=== PATIENT | female | born 1980 | race Caucasian/White ===

== ENCOUNTER 2020-09-09 11:25 | Emergency (ER) | payer OTHER, SELFPAY ==
[2020-09-09 12:00] VITALS: BP 120/74; PULSE 69; RESP 18; TEMP 36.9; O2SAT 98; BMI 23.6
--- NOTE | 2020-09-09 12:15 | HMH.EDUTC ---
[facility] [place] Disposition Clinical Impression: Encounter for laboratory testing for COVID-19 virus Disposition: Home, Self-Care Condition on Discharge: Good Instructions: DI for COVID-19 (Suspected or Confirmed ), COVID-19: Testing and Tracing, Preventing the Spread of Coronavirus Discharge Instructions Additional Instructions: *Monitor Temp, Over the counter Motrin or Tylenol as directed/as needed Tylenol every 4 hours and Motrin every 6 hours (as long as your family doctor has told you that you can take it) for fever or pain. and straight to ER if unable to lower temp less than 101.0 after medication given *Warm salt water gargles may help to soothe the throat *Throat Lozenges *Warm fluids like tea with honey may help to soothe the throat *Sleep elevated *Humidifier/Vaporizer Follow up IMMEDIATELY for new or worsening symptoms or no Noticeable improvement over the next 48-72 hours. 911 for difficulty breathing or swallowing You were tested for today for COVID19 your test result should be back in the next 24-48 hours, you may call to the [facility] to see if your test results are back in the next 48 hours [phone] [facility] hours are 9am-9pm You was given a handout with instructions for Self Quarantine and Self isolation for while you wait on test results and what to do if they are positive If you are positive the Health Dept will be contacting you also Referrals: PCP,No [Primary Care Provider] - As needed Forms: Work/School Release Time of Disposition: 12:30 Medical Decision Making - Jass Inquiry Pt receiving controlled substance: No Jass was queried for this patient: No Vital Signs: 09/09/20 12:00 Temperature 98.4 F Temperature Source Oral Pulse Rate [Right Brachial] 69 Respiratory Rate 18 Blood Pressure [Right Arm] 120/74 Blood Pressure Mean [Right Arm] 89 Blood Pressure Source [Right Arm] Automatic Cuff Blood Pressure Position [Right Arm] Sitting 02 Sat by Pulse Oximetry 98 Oxygen Delivery Method Room Air Orders (Tests/Meds): ORDERS Category Date Time Status Covid-19 Nasal PCR ([facility]) Routine Lab 09/09/20 12:07 Ordered [facility] HPI - General Stated complaint: covid exposure Time Seen by Provider: 09/09/20 12:16 Mode of Arrival: Ambulatory Source of Information: Patient Limitations: No Limitations Description of Symptoms (Recalled from Triage Doc. by RN): PATIENT REQUESTING COVID TEST D/T EXPOSURE. C/O HEADACHE, SORE THROAT, LOSS OF TASTE, FEVER, DIARRHEA, DIZZINESS AND SINUS PRESSURE HEENT Symptoms (Recalled from RN notes): No Resp Symptoms (Recalled from RN notes): No Skin Symptoms (Recalled from RN notes): No MS Symptoms (Recalled from RN notes): No Functional Status (Recalled from RN notes): WNL - History of Present Illness Provider Complaint: Patient states that she was recenty around her boss that tested positive for COVID States that she has had some diarrhea that is better today, body aches and chills State that today she hasnt been able to taste or smell anything State that also she has had runny nose and wanted to get tested for COVID - Related Data Allergies Allergy/AdvReac Type Severity Reaction Status Date / Time Iodide Allergy Unknown Uncoded 08/23/17 15:03 - Worker's Comp Is this a Worker's Comp case?: No H History - Hepatitis A Screen Drug use history?: No High risk sexual behaviors?: No History of sexually transmitted infection?: No Currently employed?: No Childcare worker?: No Do you have indoor plumbing?: Yes Do you have electricity?: Yes Attestation statement:: This patient has been screened for Hepatitis A risk factors. I have reviewed the patient's past medical history: Yes Laterality Cases: Bilateral: Tonsillectomy - Social History Alcohol Intake: never Occupational Status: other ROS Obtained: Yes All systems reviewed & no additional complaints, Yes Systems reviewed as appropriate & no additional complaints - Constitutional Constitutional: Reports syste
[2020-09-09 12:37] VITALS: BP 120/74; PULSE 69; RESP 18; TEMP 36.9; O2SAT 98
== END 2020-09-09 12:38 | disposition home or self-care (01) ==
PROVIDERS: Emergency Provider Nurse Practitioner
DX: Z20.822 Contact with and (suspected) exposure to COVID-19 (principal)
CPT/HCPCS: 99202; G0463; U0003

== ENCOUNTER → 2022-11-19 14:30 | Outpatient (CLI) | payer OTHER, SELFPAY ==
[2022-11-19 14:15] LABS: Alanine Aminotransferase 44 U/L (12-78); Albumin/Globulin Ratio 1.5 (1.1-1.8); Alkaline Phosphatase 103 U/L (38-126); Anion Gap 9.3 mEq/L (5-15); Aspartate Amino Transferase 25 U/L (14-36); Basophils # 0.1 K/mm3 (0-0.2); Basophils % 0.7 % (0.1-2.0); Bilirubin,Total 0.4 mg/dl (0.2-1.3); Blood Urea Nitrogen 14 mg/dl (7-17); Calcium 8.8 mg/dl (8.4-10.2); Carbon Dioxide 28 mmol/L (22.0-30.0); Chloride 108 mmol/L (98-107); Chol/HDL Ratio 4.1 (1-3.5); Cholesterol 131 mg/dl (140-200); Eosinophils # 0.9 K/mm3 (0.0-0.4); Eosinophils % 4.4 % (0.1-12.0); Estimated Glomerular Filt Rate 91 ml/min (>60); GFR (African American) 111 ML/MIN (>60); Globulin 2.7 g/dL (1.3-3.2); Glucose 113 mg/dl (74-100); HDL Cholesterol 32 mg/dl (40-60); Hematocrit 43.5 % (37.0-47.0); Hemoglobin 13.9 g/dL (12.2-16.2); Lymphocytes # 3.8 K/mm3 (0.7-4.5); Mean Corpuscular Hemoglobin 29.5 pg (27.0-31.2); Mean Corpuscular Volume 92.3 fl (81-99); Mean Platelet Volume 8.6 fl (7.4-10.4); Monocytes # 0.8 K/mm3 (0.1-1.0); Monocytes % 3.8 % (1.7-9.3); Neutrophils # 14.5 K/mm3 (1.8-7.8); Neutrophils % 72.2 % (37.0-80.0); Platelet Count 476 K/mm3 (142-424); Potassium 4.3 mmoL/L (3.5-5.1); Red Blood Count 4.72 M/mm3 (4.20-5.40); Sodium 141 mmol/L (136-145); Total Protein,Serum 6.7 g/dl (6.3-8.2); Triglycerides 153 mg/dl (30-150); VLDL Cholesterol 31 mg/dL (0-40)
[2022-11-19 14:18] LABS: MANUAL DIFFERENTIAL MANUAL DIFFERENTIAL (MANUAL DIFF)
[2022-11-19 14:25] LABS: Direct LDL Cholesterol 78.02 mg/dL (100-129)
[2022-11-19 14:31] LABS: 25-OH Vitamin D, Total 15.6 ng/mL (30-100)
[2022-11-19 14:45] LABS: Thyroid Stimulating Hormone 0.57 uIU/mL (0.465-4.68)
[2022-11-19 16:17] LABS: Eosinophils % 4 % (0-3); Lymphocytes % 27 % (10-50); Monocytes % 4 % (2-9); Neutrophils % 65 % (42-76); Platelet Estimate Slight Increase; RBC Morphology Normal; Total Cells Counted 100
== END ==
LOC: LAB.DROPOF 14:31
PROVIDERS: PCP Nurse Practitioner Family; Visit Provider Nurse Practitioner Family
DX: R53.83 Other fatigue (principal); E55.9 Vitamin D deficiency, unspecified; M79.671 Pain in right foot; M54.50 Low back pain, unspecified; E78.2 Mixed hyperlipidemia
CPT/HCPCS: 80053; 80061; 82306; 84443; 85007; 85025

== ENCOUNTER → 2023-02-03 13:57 | Outpatient (CLI) | payer OTHER, SELFPAY ==
--- NOTE | 2023-02-03 14:04 | XR_ITS ---
FINAL REPORT CLINICAL HISTORY: foot pain COMPARISON: None FINDINGS: LEFT FOOT Three views of the left foot demonstrate no acute fracture or dislocation. The visualized joint spaces are normally aligned. The soft tissues are unremarkable. IMPRESSION: No acute bony abnormality. Reviewed, Interpreted and Dictated by Reid Melgar MD Transcribed by Sade Garcia Authenticated and [facility]
--- NOTE | 2023-02-03 14:04 | XR_ITS ---
FINAL REPORT CLINICAL HISTORY: foot pain COMPARISON: None FINDINGS: RIGHT FOOT 3 views of the right foot were obtained. There is no acute fracture or dislocation. Visualized joint spaces are normally aligned. Soft tissues are unremarkable. A small plantar calcaneal spur is present. IMPRESSION: No acute bony abnormality. Reviewed, Interpreted and Dictated by Reid Melgar MD Transcribed by Sade Garcia Authenticated and [facility]
== END ==
PROVIDERS: PCP Nurse Practitioner Family; Visit Provider Podiatrist
DX: M79.672 Pain in left foot (principal); M79.671 Pain in right foot
CPT/HCPCS: 73630

== ENCOUNTER → 2023-03-03 14:51 | Outpatient (CLI) | payer OTHER, SELFPAY | PROVIDERS: PCP Nurse Practitioner Family; Visit Provider Nurse Practitioner Family | DX: R82.90 Unspecified abnormal findings in urine (principal) | CPT/HCPCS: 87086 ==

== ENCOUNTER → 2023-06-16 10:04 | Outpatient (CLI) | payer MEDICAID, OTHER, SELFPAY ==
[2023-06-16 11:23] LABS: Alanine Aminotransferase 82 U/L (12-78); Albumin Level 4.1 g/dl (3.5-5.0); Alkaline Phosphatase 61 U/L (38-126); Anion Gap 10.4 mEq/L (5-15); Aspartate Amino Transferase 64 U/L (14-36); Bilirubin,Direct 0.2 mg/dl (0.0-0.4); Bilirubin,Indirect 0.3 mg/dL (0.0-0.9); Bilirubin,Total 0.5 mg/dl (0.2-1.3); Bilirubin,Unconjugated 0.3 mg/dL (0.0-1.1); Blood Urea Nitrogen 15 mg/dl (7-17); Calcium 9.2 mg/dl (8.4-10.2); Carbon Dioxide 31 mmol/L (22.0-30.0); Chloride 104 mmol/L (98-107); Chol/HDL Ratio 4.5 (1-3.5); Cholesterol 176 mg/dl (140-200); Estimated Glomerular Filt Rate 91 ml/min (>60); GFR (African American) 111 ML/MIN (>60); Glucose 102 mg/dl (74-100); HDL Cholesterol 39 mg/dl (40-60); Potassium 4.4 mmoL/L (3.5-5.1); Sodium 141 mmol/L (136-145); Total Protein,Serum 6.8 g/dl (6.3-8.2); Triglycerides 143 mg/dl (30-150); VLDL Cholesterol 29 mg/dL (0-40)
[2023-06-16 11:33] LABS: Direct LDL Cholesterol 111.14 mg/dL (100-129); NT Pro Brain Natriuretic Pep. 29.1 pg/mL (0-125)
[2023-06-16 11:38] LABS: Free T4 (Free Thyroxine) 1.16 ng/dl (0.78-2.19)
[2023-06-16 15:53] LABS: Basophils # 0.1 K/mm3 (0-0.2); Basophils % 0.7 % (0.1-2.0); Eosinophils # 0.4 K/mm3 (0.0-0.4); Eosinophils % 3.6 % (0.1-12.0); Hematocrit 43.8 % (37.0-47.0); Hemoglobin 14.9 g/dL (12.2-16.2); Lymphocytes # 2.8 K/mm3 (0.7-4.5); Lymphocytes % 26.9 % (10-50); Mean Corpuscular HGB Conc 33.9 g/dL (31.8-35.4); Mean Corpuscular Hemoglobin 31.9 pg (27.0-31.2); Mean Corpuscular Volume 93.9 fl (81-99); Mean Platelet Volume 8.9 fl (7.4-10.4); Monocytes # 0.5 K/mm3 (0.1-1.0); Monocytes % 4.4 % (1.7-9.3); Neutrophils # 6.7 K/mm3 (1.8-7.8); Neutrophils % 64.5 % (37.0-80.0); Platelet Count 289 K/mm3 (142-424); Red Blood Count 4.66 M/mm3 (4.20-5.40); Red Cell Distribution Width 13.7 % (11.5-17.5); White Blood Count 10.3 K/mm3 (4.8-10.8)
== END ==
LOC: LAB 10:05
PROVIDERS: PCP Emergency Medicine; Visit Provider Physician Assistant
DX: R06.02 Shortness of breath (principal); R60.9 Edema, unspecified; R07.9 Chest pain, unspecified; R94.31 Abnormal electrocardiogram [ECG] [EKG]; Z72.0 Tobacco use
CPT/HCPCS: 36415; 80048; 80061; 80076; 83735; 83880; 84439; 84443; 85025

== ENCOUNTER → 2023-07-14 09:59 | Outpatient (CLI) | payer MEDICAID, SELFPAY ==
--- NOTE | 2023-07-14 10:02 | CA_ITS ---
APPROVED REPORT EXAM: Comprehensive 2D, Doppler, and color-flow Echocardiogram Fish Culturist: Pascale Villalba RT(R) Ht: 5 ft 5 in Wt: 161lbs BSA: 1.80 BP: 115/82 mmHg Indications: SOB, CHF, CP, edema, smoker, fatigue 2D Dimensions LVOT 1.90 cm (M/F) 1.5-2.5 LVEF (Lorenzo's) 61.60 % F: 54 - 74 LV Volume 93.40 mL F: 46 - 106 LV Volume Index 51.60 mL/m2 F: 29 - 61 LA Volume 22.80 mL LA Volume Index 12.60 mL/m2 (M/F) 16-34 M-Mode Dimensions RVDd 2.54 cm (0.9-2.6) LA Diam 3.23 cm (1.9-4.0) LVDd 4.79 cm (3.5-5.7) Ao Diam 2.62 cm (2.0-3.7) LVDs 3.36 cm (3.5-5.7) IVSd 0.75 cm (0.6-1.1) PWd 0.82 cm (0.6-1.1) EF (Teich) 56.90% FS 29.90% EDV (Teich) 107.00 mL ESV (Teich) 46.10 mL LV Diastology E Decel Time 220.00 (160-240 msec) E/A Ratio 1.3 MED E' 8.80 (< 7 cm/sec) E'/MED E' Ratio 10.74 (>14) LAT E' 12.80 (<10 cm/sec) E/LAT E' Ratio 7.38 (>14) Mitral Valve MV E Max Rome. 95.00 (40-130 cm/s) MV A Velocity 75.00 (40-130 cm/s) E/A Ratio 1.26 MV Decel. Time 220.00 (160-240 ms) MV PHT 64.00 ms Tricuspid Valve TR P. Velocity 258.00 cm/s RAP Estimate 10.00 mmHg RVSP 36.50 mmHg Left Ventricle The left ventricle is normal size. The left ventricular systolic function is normal. The left ventricular ejection fraction is within the normal range. There is normal left ventricular wall thickness. There is normal LV segmental wall motion. The left ventricular diastolic function is normal. LVEF is 60%. Right Ventricle The right ventricle is mildly dilated. The right ventricular systolic function is normal. Atria The left atrium size is normal. The right atrium size is normal. There is no Doppler evidence of interatrial shunt. Aortic Valve The aortic valve opens well. There is no aortic valvular stenosis. No aortic regurgitation is present. Mitral Valve The mitral valve is normal in structure. No evidence of mitral valve stenosis. There is no mitral valve regurgitation noted. Tricuspid Valve Valve leaflets are thin and pliable. Trace tricuspid regurgitation. There is insufficient TR jet to estimate RVSP. Pulmonic Valve The pulmonary valve is normal in structure. Trace pulmonic regurgitation. Great Vessels The aortic root is normal in size. The ascending aorta is normal in size. IVC is normal in size and collapses >50% with inspiration. Pericardium There is no pericardial effusion. Conclusion Normal biventricular systolic function. Mild RV dilation. No significant valvular stenosis or regurgitation. Electronically signed by : Verito Coyne MD 07/19/2023 13:13:08
== END ==
LOC: RT 10:01
PROVIDERS: PCP Emergency Medicine; Visit Provider Nurse Practitioner Family
DX: R06.02 Shortness of breath (principal); R07.9 Chest pain, unspecified; R94.31 Abnormal electrocardiogram [ECG] [EKG]; R60.1 Generalized edema
CPT/HCPCS: 93306

== ENCOUNTER → 2023-07-25 06:30 | Outpatient (CLI) | payer MEDICAID, SELFPAY ==
--- NOTE | 2023-07-25 06:35 | NM_ITS ---
APPROVED REPORT Exam: Nuclear Stress Test Indication: dysrhtmia, tob use, fm hx, c.p., sob, palpitations, fatigue, abn ekg Patient Location: Outpatient Stress Tech: An Rosen [place] Tech:Rachael Dupont, ARRT RT (R)(N)(M) Ht: 5 ft 5 in Wt: 163 lbs Bra Size: c HR: 58 bpm BP: 107/75 mmHg BSA: 1.81 m2 Rhythm: NSR TID: 1.14 BMI: 27.1 History: dysrhtmia, tob use, fm hx, c.p., sob, palpitations, fatigue, abn ekg Procedure: Patient exercised on Milton protocol 10:01 minutes and sec, resting heart rate 58 bpm, resting blood pressure 107/75 mmHg, with exercise maximum heart rate achived was 160 bpm which is 91 % of the maximum predicted heart rate and blood pressure was 176/82 mmHg. Test was stopped due to fatige, sob. Patient has Average exercise capacity, achieved 12.8 METs of workload on treadmill, the blood pressure response to exercise was Normal. Cardiac Stress and Resting SPECT Images: Cardiac Stress and Resting SPECT images were obtained using technetium 99m Myoview 31.2 mCi stress and 10.00 mCi at rest. Raw images demonstrate significant soft tissue overlap with the anterior borders of the LV wall. Resting and stress imaging in supine position demonstrate a medium sized, mild, tapered fixed perfusion defect that is no longer visualized with prone stress imaging. Findings are suggestive soft tissue attenuation. Gated imaging demonstrates normal global and regional LV systolic function. LVEF is calculated at 58%. Conclusion: Soft tissue attenuation is present. No definite evidence of fixed or reversible perfusion defects. Gated imaging demonstrates normal global and regional LV systolic function. LVEF is calculated at 58%. Electronically signed by : Verito Coyne MD 07/27/2023 12:33:12
--- NOTE | 2023-07-25 09:12 | CA_ITS ---
APPROVED REPORT Exam: Exercise Treadmill Technologist: An Rosen Ht: 5 ft 5 in Wt: 164 lbs BSA: 1.82 m2 HR: 58 bpm BP: 107/75 mmHg Rhythm: NSR Indications: Chest pain Medical History Medications: Lidocaine,,,,, Gabapentin,,,,, Vitamin D3,,,,, Diclofenac,,,,, Ibuprofen,,,,, CHANTIX,,,,, BuPRenorphinE-Naloxone,,,,, Furosemide,,,,, Stress Test Details Test: Milton HR Resting HR: 71 bpm Max Heart Rate (APMHR): 176 bpm Max HR Achieved: 160 bpm Target HR (85% APMHR): 150 bpm % of APMHR: 91 Recovery HR: 90 bpm HR response to stress: Normal HR response to stress BP Resting BP: 107.0/75.0 mmHg Max BP: 176.0/82.0 mmHg Recovery BP: 126.0/80.0 mmHg BP response to stress: Normal blood pressure response to stress. ECG Resting ECG: Sinus bradycardia Stress EC.[address] depression Arrhythmia: PVCs Recovery ECG: Return to baseline within 3 minutes of recovery Recovery Arrhythmia: PVCs Clinical Exercise duration: 10:01 min Highest Stage Achieved: Exercise capacity: 12.8 METs Overall Exercise Capacity for Age: Average Stress ECG Conclusion The patient was able to exercise for total of 10 minutes, 01 seconds. She achieved a total of 12.8 METS. She has average exercise capacity compared to age and sex matched peers. She has normal HR and BP response to exercise. Symptoms: Dyspnea, Chest pressure Arrhythmias/Ectopy: PVC ST-T Changes: 0.[address] depression Conclusion: Average exercise capacity. Normal ECG response to exercise. Myoview images reported separately. Test Summary REST . . . . . . . Sitting REST . . . . . . . Standing REST 17:22 0.0 1.2 71 . 107/ 75 . . Stage 1 01:00 10.0 1.7 96 . . . . Stage 1 02:00 10.0 1.7 104 . . . . Stage 1 03:00 10.0 1.7 107 . 140/ 68 . . Stage 2 01:00 12.0 2.5 116 . . . . Stage 2 02:00 12.0 2.5 120 . . . . Stage 2 03:00 12.0 2.5 114 . 158/ 70 . . Stage 3 01:00 14.0 3.4 132 . . . . Stage 3 02:00 14.0 3.4 138 . . . . Stage 3 03:00 14.0 3.4 147 . . . . Stage 4 . . . . . . . Myoview Injected Stage 4 01:00 16.0 4.2 157 . . . . Stage 4 01:01 16.0 4.2 157 . . . Stop exercise at 10:01 RECOVERY 01:00 0.0 0.0 125 . 176/ 82 . . RECOVERY 02:00 0.0 0.0 104 . 176/ 82 . . RECOVERY 03:00 0.0 0.0 95 . 148/ 77 . . RECOVERY 04:00 0.0 0.0 94 . 148/ 77 . . RECOVERY 05:00 0.0 0.0 90 . 137/ 86 . . RECOVERY 06:00 0.0 0.0 86 . 137/ 86 . . RECOVERY 06:18 0.0 0.0 90 . 126/ 80 . . Electronically signed by : Verito Coyne MD 07/27/2023 12:30:55
== END ==
LOC: RAD 06:31
PROVIDERS: PCP Emergency Medicine; Visit Provider Physician Assistant
DX: G47.9 Sleep disorder, unspecified (principal); R06.02 Shortness of breath; R06.81 Apnea, not elsewhere classified; R06.83 Snoring; R07.9 Chest pain, unspecified; R60.9 Edema, unspecified; R94.31 Abnormal electrocardiogram [ECG] [EKG]; Z72.0 Tobacco use
CPT/HCPCS: 78452; 93017; 93018; A9502

== ENCOUNTER 2023-09-08 09:46 | Outpatient (CLI) | payer MEDICAID, SELFPAY ==
[2023-09-09 03:45] LABS: Amphetamine/Metha Screen,Urine Negative ng/ml (<1000); Barbiturates Screen,Urine Negative ng/ml (<200); Benzodiazepines Screen,Urine Negative ng/ml (<200); Cannabinoid Screen,Urine Negative ng/ml (<50); Cocaine Screen,Urine Negative ng/ml (<300); Methadone Screen,Urine Negative ng/ml (<300); Opiate Screen,Urine Negative ng/ml (<300); Phencyclidine Screen,Urine Negative ng/ml (<25)
== END 2023-09-09 23:59 | disposition home or self-care (01) ==
PROVIDERS: PCP Family Medicine; Visit Provider Family Medicine
DX: G62.9 Polyneuropathy, unspecified (principal); Z79.899 Other long term (current) drug therapy
CPT/HCPCS: 80307

== ENCOUNTER 2023-10-21 08:58 | Outpatient (CLI) | payer MEDICAID, SELFPAY ==
--- NOTE | 2023-10-21 08:58 | MR_ITS ---
FINAL REPORT CLINICAL HISTORY: back pain COMPARISON: None FINDINGS: Multiplanar MR imaging of the lumbar spine was performed without and with contrast. There is motion on many sequences which somewhat limits overall image quality. On the sagittal T2-weighted images, disc degeneration is seen at several levels. There are several small Schmorl's nodes as well. Multiple vertebral body hemangiomas are present. The vertebral alignment is normal. There is no evidence of fracture. The conus is seen at approximately the L1 level and has an unremarkable appearance. L1-2: An annular bulge is present. There is a small left paracentral disc protrusion which mildly indents the thecal sac. No significant canal stenosis or neuroforaminal narrowing is seen. L2-3: An annular bulge is present. No significant canal stenosis or neuroforaminal narrowing is seen. L3-4: An annular bulge is present. No significant canal stenosis or neuroforaminal narrowing is seen. L4-5: An annular bulge is present. There is mild right neural foraminal narrowing. L5-S1: No significant canal stenosis or neuroforaminal narrowing is seen. No abnormal contrast enhancement is identified. IMPRESSION: Multilevel mild degenerative disc disease and spondylosis as described. Reviewed, Interpreted and Dictated by Omkar Daley III, MD Transcribed by Sade Garcia Authenticated and [facility]
[2023-10-21] MEDS: SODIUM CHLORIDE 0.9% 10ML SYR (RAD ONLY) 10 ML IV (10:45)
[2023-10-21] MEDS: GADOTERIDOL INJ 17ML SYRINGE 15 ML IV (10:45)
== END 2023-10-21 23:59 ==
LOC: RAD 08:58
PROVIDERS: Visit Provider Internal Medicine
DX: M54.50 Low back pain, unspecified (principal)
CPT/HCPCS: 72158; 76376; A9576

== ENCOUNTER 2023-11-03 09:28 | Outpatient (CLI) | payer MEDICAID, SELFPAY ==
--- NOTE | 2023-11-03 09:33 | XR_ITS ---
FINAL REPORT CLINICAL HISTORY: right knee pain FINDINGS: AP, lateral and oblique views of the right knee were obtained. There is no prior exam for comparison. There is no acute osseous abnormality of the right knee. The joint space is preserved. The soft tissues are normal. There is no joint effusion. IMPRESSION: No acute osseous abnormality of the right knee. Reviewed, Interpreted and Dictated by Christine Acuna MD Transcribed by Judy Crow Authenticated and [facility]
--- NOTE | 2023-11-03 09:33 | XR_ITS ---
FINAL REPORT CLINICAL HISTORY: fall on a chair COMPARISON: None FINDINGS: Four views of the left ribs were obtained. There is no displaced, acute fracture identified. The visualized lungs are clear. No pneumothorax is identified. IMPRESSION: No displaced rib fracture or pneumothorax identified. Reviewed, Interpreted and Dictated by Crhistine Acuna MD Transcribed by Judy Crow Authenticated and [facility]
== END 2023-11-03 23:59 ==
LOC: RAD 09:30
PROVIDERS: PCP Internal Medicine; Visit Provider Internal Medicine
DX: R29.898 Other symptoms and signs involving the musculoskeletal system (principal); W19.XXXA Unspecified fall, initial encounter
CPT/HCPCS: 71100; 73562

== ENCOUNTER 2024-01-19 09:36 | Outpatient (CLI) | payer MEDICAID, SELFPAY ==
--- NOTE | 2024-01-19 09:43 | XR_ITS ---
FINAL REPORT CLINICAL HISTORY: fall FINDINGS: RIBS BILATERAL W/CHEST MIN 4 VIEWS The heart size is normal. The mediastinum is normal. The lungs are clear. There is no pneumothorax. Three views were obtained. There is no acute fracture or dislocation. IMPRESSION: No acute process. Reviewed, Interpreted and Dictated by Omkar Daley III, MD Transcribed by Araceli To Authenticated and . [facility]
--- NOTE | 2024-01-19 09:43 | XR_ITS ---
FINAL REPORT CLINICAL HISTORY: Right Ring finger pain FINDINGS: Right hand Three views were obtained. There is no acute fracture or dislocation. Mild degenerative changes are present. No soft tissue abnormality is identified. IMPRESSION: No acute process. Reviewed, Interpreted and Dictated by Omkar Daley III, MD Transcribed by Araceli To Authenticated and [facility]
--- NOTE | 2024-01-19 09:49 | XR_ITS ---
FINAL REPORT CLINICAL HISTORY: Left Hand; seen at [facility], states fx of ulna COMPARISON: 01/16/2022 FINDINGS: Left hand Three views were obtained. Ulnar styloid process fracture is again identified. There are mild degenerative changes of the wrist. Splint obscures some of the detail. IMPRESSION: Fracture as above. Reviewed, Interpreted and Dictated by Omkar Daley III, MD Transcribed by Araceli To Authenticated and [facility]
== END 2024-01-19 23:59 | disposition home or self-care (01) ==
PROVIDERS: PCP Internal Medicine; Visit Provider Internal Medicine
DX: M79.641 Pain in right hand (principal); M79.642 Pain in left hand; S62.92XA Unspecified fracture of left hand, initial encounter for closed fracture
CPT/HCPCS: 71100; 71111; 73130

== ENCOUNTER 2024-02-24 10:41 | Outpatient (CLI) | payer MEDICAID, SELFPAY ==
--- NOTE | 2024-02-24 10:50 | XR_ITS ---
FINAL REPORT CLINICAL HISTORY: Left Wrist fx COMPARISON: 01/17/2024 FINDINGS: Three views of the left wrist were obtained. Ulnar styloid process fracture is again identified. There is increasing distraction at the fracture site measuring 3 mm, previously measured 1 mm. No new bony abnormality is identified. IMPRESSION: Further displacement of the ulnar styloid process fracture. Reviewed, Interpreted and Dictated by Marquis Mccullough MD Transcribed by Araceli To Authenticated and [facility]
== END 2024-02-24 23:59 | disposition home or self-care (01) ==
LOC: RAD 10:42
PROVIDERS: PCP Internal Medicine; Visit Provider Orthopaedic Surgery
DX: M25.532 Pain in left wrist (principal); S52.612A Displaced fracture of left ulna styloid process, initial encounter for closed fracture
CPT/HCPCS: 73110

== ENCOUNTER 2024-04-02 16:26 | Outpatient (CLI) | payer MEDICAID, SELFPAY ==
[2024-04-02 19:43] LABS: Hemoglobin A1C 5.7 % (4.0-6.0)
[2024-04-10 22:08] LABS: 1,25 Dihydroxy Vitamin D 60 pg/mL (.); 1,25-Dihydroxy, Vitamin D-2 <10 pg/mL (.); 1,25-Dihydroxy, Vitamin D-3 57 pg/mL (.)
== END 2024-04-02 23:59 | disposition home or self-care (01) ==
LOC: LAB.DROPOF 04-03 16:26
PROVIDERS: PCP Internal Medicine; Visit Provider Internal Medicine
DX: E55.9 Vitamin D deficiency, unspecified (principal); E66.3 Overweight; Z68.28 Body mass index [BMI] 28.0-28.9, adult
CPT/HCPCS: 82652; 83036

== ENCOUNTER 2024-04-20 14:31 | Outpatient (CLI) | payer MEDICAID, SELFPAY ==
--- NOTE | 2024-04-20 14:35 | MR_ITS ---
FINAL REPORT CLINICAL HISTORY: right sided low back pain. right leg pain, numbness and tingling. COMPARISON: 10/21/2023 FINDINGS: Multiplanar MR imaging of the lumbar spine was performed without and with contrast. On the sagittal T2-weighted images, disc degeneration is seen at several levels. The vertebral alignment is normal. There is no evidence of fracture. The conus is seen at approximately the L1 level and has an unremarkable appearance. Several vertebral body hemangiomas are present. There is a 9 mm decreased signal focus in the posterior L2 vertebral body, not significantly changed from the prior exam. L1-2: There is a small left paracentral disc protrusion, stable since the prior exam. L2-3: An annular bulge is present with facet arthropathy. No significant canal stenosis or neuroforaminal narrowing is seen. L3-4: An annular bulge is present. There is a small right foraminal disc protrusion, with mild right neural foraminal narrowing. L4-5: An annular bulge is present. There is facet arthropathy and mild bilateral neural foraminal narrowing. L5-S1: An annular bulge is present. Facet arthropathy is present. No significant canal stenosis or neuroforaminal narrowing is seen. No abnormal contrast enhancement is identified. IMPRESSION: Multilevel mild degenerative disc disease and spondylosis with areas of neural foraminal narrowing as described. 9 mm decreased signal focus in the posterior L2 vertebral body, not significantly changed since October. Would consider follow-up MRI in 12 months or bone scan as clinically indicated. Reviewed, Interpreted and Dictated by Omkar Daley III, MD Transcribed by Sade Garcia Authenticated and [facility]
[2024-04-20] MEDS: GADOTERIDOL INJ 20ML SYRINGE 16 ML IV (16:02)
[2024-04-20] MEDS: SODIUM CHLORIDE 0.9% 10ML SYR (RAD ONLY) 10 ML IV (16:02)
== END 2024-04-20 23:59 | disposition home or self-care (01) ==
LOC: RAD 14:31
PROVIDERS: PCP Internal Medicine; Visit Provider Internal Medicine
DX: M54.16 Radiculopathy, lumbar region (principal)
CPT/HCPCS: 72158; A9576

== ENCOUNTER 2024-05-02 09:00 | Outpatient (RCR) | payer MEDICAID, SELFPAY ==
--- NOTE | 2024-04-12 10:30 | HMH.PTOPEV ---
PT Outpatient Evaluation Rehab PT Outpatient Evaluation Start: 04/12/24 09:59 Freq: Status: Active Protocol: Document 04/12/24 10:00 REX (Rec: 04/12/24 10:30 REX [id number]) E-signed By Babatunde Moe, PT Outpatient Therapy Subjective History Subjective History Patient is a 43 year old female presenting to outpatient PT with reports of chronic LBP with RLE radicular symptoms. Symptom onset starting approx 1 year ago. All the pain started after I hit my back on a conveyor belt at work. Patient was working at [employer] during the injury, though this is not considered a WC case. Most recent imaging indicates multi -level DDD/spondylosis. Special tests indicate slight R ant rotation of the innominant. Comorbidities include hx of B trigger finger and B CS. New diagnosis of cancer in past 12 No months? Chief Complaint Pain,Spasms,Stiff,Paresthesia Symptom Type Ache,Throb,Burning,Numbness Symptoms Relieved By Rest/Positioning,Heat,OTC Meds ,Prescription Meds Symptoms Aggravated By Standing,Physical Activity, Walking,Lifting Prior Functional Limitations None Current Functional Limitations Lifting,Housework,Standing, Walking,Bending/Stooping Symptom Description Constant but Variable Level of pain today (0-10) 4 Pain scale - at its best (0-10) 4 Pain scale - at its worst (0-10) 7 Lumbopelvic Eval Posture Thoracic Spine Posture Standing Position Increased Kyphosis Lumbar Spine Posture Standing Position Increased Lordosis Assistive device Assistive Devices None / NA Palapation tenderness right paraspinal tenderness Yes: L3-S1 3/4 buttock tenderness Yes: 3/4 Accessory Movement L3 right L4 right L5 right S1 right Range of Motion Lumbar Spine Active Flexion Range of 68 Motion (degrees) Lumbar Spine Active Extension Range of 15 Motion (degrees) Left Lumbar Spine Lateral Flexion Active 8 Range of Motion (degrees) Right Lumbar Spine Lateral Flexion 7 Active Range of Motion (degrees) Lumbar Spine ROM Limitations Soft Tissue Tightness,Bony Restriction Manual Muscle Test Right Knee Extension Strength Grade 5 Normal Knee Flexion Strength Grade 4 Good Hip Flexion Strength Grade 4 Good Extensor Hallucis Longus Strength Grade 5 Normal Ankle Dorsiflexion Strength Grade 4 Good Gastronemius/Soleus Strength Grade 5 Normal Altered Sensation LE Dermatome Level L4,L5,S1 Comment int NT/burning/throbbing Special Tests Hip Cruz (THUY) Test Positive Left,Positive Right Hip Jerson Test Positive Left,Positive Right Hip Piriformis Test Positive Left,Positive Right Sciatic Nerve Tension Test Negative Left,Positive Right James Test Positive Sacroiliac Joint Distraction Test Positive Left,Positive Right Lumbar Spine Whelan Test Positive Left,Positive Right Lumbar Long [place] Distraction Test/Manual Positive Traction Oswestry Index Section 1 Pain Intensity The pain is severe and does not vary much Section 2 Personal Care (Washing,Dresing) my way of washing or dressing even though it causes some pain Section 3 Lifting Pain prevents me from lifting weights off the floor Section 4 Walking I cannot walk at all without increasing pain Section 5 Sitting Pain prevents me from sitting for more than one hour Section 6 Standing I cannot stand more than 1/2 hour without increasing pain Section 7 Sleeping Because of my pain, my normal night's sleep is less than 6 hours sleep Section 8 Social Life Pain has restricted my social life and I do not go out often Section 9 Traveling Pain restricts all forms of travel Section 10 Changing Degreee of Pain My pain is rapidly getting worse Score and Risk Level Oswestry Sc 33 Oswestry Risk Level Severe Disability Outpatient Therapy Assessment Impairments Problems/Impairmments Palpation Tenderness,Impaired Range of Motion,Impaired Strength,Impaired Walking, Impaired Standing,Impaired Lifting,Impaired Household Care,Impaired Work Activities, Subjective C/O Pain Prognosis Rehab Potential Good Clinical Impression Consistent with Diagnosis Yes Short Term Goals Number of Weeks 2 Decrease Subjective C/O Pain Yes: 5/10 at worst 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 Number of Weeks 4-6 Decreased Palpation Tenderness Yes: 1/4 Increase Range of Motion Yes: WNL Increase Strength Yes: 5/5 RLE mm Improve Oswestry Score Yes: mild disability Outpatient Therapy Plan of Care Treatment Plan May Include Therapeutic Exercise Including Home Yes Exercise Program Manual Therapy Techniques Yes Neuromuscular Re-education Yes Therapeutic Activities to Return to Yes Previous Functional/Work Level Gait Training Yes ADL/Self Care Education Yes Mechanical Traction Yes Dry Needling Yes Thermal Modalities Yes Electrical Stimulation Yes Ultrasound/Phonophoresis Yes Iontophoresis Yes Orthotics/Bracing/Splinting Yes Vasopneumatic Compression Pump Yes Massage Yes Eval/Re-Eval Yes Frequency Times per week 2 Duration Number of Weeks 4-6 Addendums This patient is a candidate for social No or vocational rehab? Patient/Guardian verbally acknowledges Yes understanding of treatment program and consents to further treatment? Patient/Guardian verbally acknowledges Yes understanding of diagnosis, prognosis and goals for treatment? Eval Complexity PT Charges 48376 - Moderate Complexity Shoulder/Elbow Eval Shoulder Objective Measurements Elbow Objective Measurements PHYSICIAN CERTIFICATION: I certify the specified therapy services for Joanna Smallwood are required, authorized, and reviewed every 30 days.
== END 2024-05-02 09:05 | disposition home or self-care (01) ==
LOC: PT 09:00
PROVIDERS: Visit Provider Internal Medicine
DX: M54.16 Radiculopathy, lumbar region (principal)
CPT/HCPCS: 97110; 97163

== ENCOUNTER 2024-06-07 11:02 | Outpatient (CLI) | payer MEDICAID, SELFPAY ==
[2024-06-07 18:21] LABS: Basophils # 0.1 K/mm3 (0-0.2); Basophils % 0.6 % (0.1-2.0); Eosinophils # 0.3 K/mm3 (0.0-0.4); Eosinophils % 2.8 % (0.1-12.0); Hematocrit 46.8 % (37.0-47.0); Hemoglobin 14.9 g/dL (12.2-16.2); Lymphocytes # 2.7 K/mm3 (0.7-4.5); Lymphocytes % 23.2 % (10-50); Mean Corpuscular HGB Conc 31.8 g/dL (31.8-35.4); Mean Corpuscular Volume 100.9 fl (81-99); Mean Platelet Volume 8.9 fl (7.4-10.4); Monocytes # 0.4 K/mm3 (0.1-1.0); Monocytes % 3.7 % (1.7-9.3); Neutrophils # 8.2 K/mm3 (1.8-7.8); Neutrophils % 69.8 % (37.0-80.0); Platelet Count 277 K/mm3 (142-424); Red Blood Count 4.64 M/mm3 (4.20-5.40); Red Cell Distribution Width 14.1 % (11.5-17.5); White Blood Count 11.7 K/mm3 (4.8-10.8)
[2024-06-07 18:37] LABS: Alanine Aminotransferase 101 U/L (12-78); Albumin Level 3.9 g/dl (3.5-5.0); Albumin/Globulin Ratio 1.7 (1.1-1.8); Alkaline Phosphatase 80 U/L (38-126); Amylase 61 U/L (30-110); Anion Gap 7.1 mEq/L (5-15); Aspartate Amino Transferase 57 U/L (14-36); Bilirubin,Total 0.5 mg/dl (0.2-1.3); Blood Urea Nitrogen 10 mg/dl (7-17); Calcium 8.9 mg/dl (8.4-10.2); Carbon Dioxide 27 mmol/L (22.0-30.0); Chloride 109 mmol/L (98-107); Estimated Glomerular Filt Rate 91 ml/min (>60); GFR (African American) 110 ML/MIN (>60); Globulin 2.3 g/dL (1.3-3.2); Glucose 108 mg/dl (74-100); Lipase 104 U/L (23-300); Potassium 4.1 mmoL/L (3.5-5.1); Sodium 139 mmol/L (136-145); Total Protein,Serum 6.2 g/dl (6.3-8.2)
[2024-06-07 18:42] LABS: C-Reactive Protein 20.2 mg/L (0-4)
== END 2024-06-07 23:59 | disposition home or self-care (01) ==
LOC: LAB.DROPOF 06-08 11:02
PROVIDERS: PCP Internal Medicine; Visit Provider Internal Medicine
DX: R06.02 Shortness of breath (principal); R10.84 Generalized abdominal pain; E55.9 Vitamin D deficiency, unspecified; R07.9 Chest pain, unspecified; R06.09 Other forms of dyspnea; R19.06 Epigastric swelling, mass or lump
CPT/HCPCS: 80053; 82150; 83690; 85025; 86140

== ENCOUNTER 2024-06-14 09:57 | Outpatient (CLI) | payer MEDICAID, SELFPAY ==
[2024-06-14 10:44] LABS: Activated Partial Thrombo Time 24.9 seconds (22.8-30.6); INR 0.89 (0.9-1.1); Prothrombin Time 10.1 seconds (10.1-12.5)
== END 2024-06-14 23:59 | disposition home or self-care (01) ==
LOC: LAB 09:57
PROVIDERS: PCP Internal Medicine; Visit Provider Internal Medicine
DX: R94.31 Abnormal electrocardiogram [ECG] [EKG] (principal)
CPT/HCPCS: 36415; 85610; 85730

== ENCOUNTER 2024-06-22 07:33 | Outpatient (CLI) | payer MEDICAID, SELFPAY ==
--- NOTE | 2024-06-22 07:34 | MR_ITS ---
PROCEDURE INFORMATION: Exam: MR Abdomen Without and With Contrast Exam date and time: 06/22/2024 7:46 AM Age: 43 years old Clinical indication: Abdominal pain; Additional info: HX of uterine cancer, abdominal mass TECHNIQUE: Imaging protocol: Magnetic resonance imaging of the abdomen without and with contrast. Contrast material: ISOVUE; Contrast volume: 15 ml; Contrast route: IV; COMPARISON: MR LUMBAR SPINE WO/W CON 04/20/2024 2:40 PM FINDINGS: Liver: Diffuse loss liver parenchymal signal on out of phase sequences indicative of diffuse hepatic steatosis. Gallbladder and biliary ducts: Status post cholecystectomy. Prominence of the extrahepatic biliary system, not an uncommon finding in a patient that is status post cholecystectomy. Pancreas: Unremarkable. No ductal dilation. Spleen: Unremarkable. No splenomegaly. Adrenal glands: Unremarkable. No mass. Kidneys: Unremarkable. No solid mass. No hydronephrosis. Stomach and bowel: Polypoid mass apparent within the proximal duodenal just prior to the ampulla Vater, measures about 11 x 13 x 23 mm (series 12, image 26; series 4 image 19). This mass demonstrates mild restricted diffusion (series 19, image 61; series 20, image 26). There is perhaps mild contrast enhancement of the mass on early phase subtraction images. Intraperitoneal space: No free fluid. Vasculature: No abdominal aortic aneurysm. Lymph nodes: No enlarged nodes. Bones/joints: Unremarkable. No suspicious lesions. Soft tissues: Unremarkable. IMPRESSION: 1. Polypoid mass within the duodenal just prior to the ampulla Vater, with the above details. Recommend gastrointestinal consultation. 2. Hepatic steatosis. Correlate with liver dysfunction laboratory values. 3. Status post cholecystectomy.
[2024-06-22] MEDS: SODIUM CHLORIDE 0.9% 10ML SYR (RAD ONLY) 10 ML IV (08:52)
[2024-06-22] MEDS: GADOTERIDOL INJ 20ML SYRINGE 15 ML IV (08:53)
[2024-06-22] MEDS: 0.9 % SODIUM CHLORIDE 50 ML VIAL 20 ML IV (08:53)
== END 2024-06-22 23:59 | disposition home or self-care (01) ==
LOC: RAD 07:34
PROVIDERS: PCP Internal Medicine; Visit Provider Internal Medicine
DX: R19.06 Epigastric swelling, mass or lump (principal); Z85.42 Personal history of malignant neoplasm of other parts of uterus
CPT/HCPCS: 74183; A9576

== ENCOUNTER 2024-07-04 08:12 | Outpatient (CLI) | payer MEDICAID, SELFPAY ==
[2024-07-04 08:28] VITALS: BMI 28.3
[2024-07-04] MEDS: IVABRADINE HCL 7.5MG TABLET PO (08:30)
[2024-07-04] MEDS: METOPROLOL TARTRATE 50MG TABLET 50 MG (08:35)
[2024-07-04] MEDS: METOPROLOL TARTRATE 25MG TABLET 25 MG (08:35)
[2024-07-04 08:43] VITALS: BP 108/69; PULSE 80; RESP 18; TEMP 36.5; O2SAT 95
--- NOTE | 2024-07-04 09:49 | CT_ITS ---
APPROVED REPORT Grant Manager: CLINICAL INDICATION Chest Pain TECHNIQUE Image Acquisition: A 128 slice MDCT scanner (Homuorka View) was used for data acquisition. A noncontrast coronary calcium scan was performed. A CT attenuation threshold of 130 Hounsfield units (HU) was used for the detection of calcium in contiguous voxels of 1 sq mm in area to be counted as individual lesions. Bolus tracking in the ascending aorta with a threshold of 180 HU was performed. Immediately afterwards, ECG synchronized cardiac CT was then performed from the cardiac base to apex using retrospective gating with ECG tube current modulation. A total of 85 mL of Isovue 370 mg/mL contrast medium was administered at 5 mL/sec followed by a saline flush using a biphasic injection protocol. A tube voltage of 120 KVp was used. The patient received the following medications prior to the cardiac CT. 75 mg of oral metoprolol 15 mg of oral ivabradine The average heart rate at the time of acquisition was 100 bpm due to patient being uncomfortable during procedure. Image Reconstruction Transaxial images were reconstructed at 0.67 mm slide thickness. Data was reviewed interactively on an advanced workstation capable of 2 and 3-dimensional displays in all conventional reconstruction formats, including multiplanar reformations, maximum intensity projections, curved multiplanar reformations, and volume rendered reconstructions. When applicable, selected routine images describing the relevant coronary anatomy and pathology were saved and sent to PACS. Complications None Technical Quality Overall image quality was suboptimal and nondiagnostic due to significant motion and blurring. Coronary artery opacification was inadequate. Total DLP (Dose-Length Product) is 2226.6 mGy-cm. The reported value represents the total of one or more individual components during the CT acquisition of this date and at this time, and as such, the same value may appear in more than one CT report depending on the interpreting/reporting physicians. COMPARISON None FINDINGS CT Coronary Calcium Scoring LMA (Left Main Artery) = 0 LAD (Left Anterior Descending) = 0 LCX (Left Coronary Circumflex) = 0 RCA (Right Coronary Artery) = 0 Total Calcium Score = 0 using the AJ-130 method. 4 oh The interpretation of the calcium heart score is based on the following continuum*: 0 = no calcified plaque detected (risk of coronary artery disease is very low ??? less than 5%) 1-10 = calcium detected in extremely minimal levels (risk of coronary diseases is still low ??? less than 10%) 11-100 = mild levels of plaque detected with certainty (mild or minimal narrowing of heart arteries is likely) 101-400 = definite,at least moderate levels of plaque detected (relatively high risk of a heart attack within 3-5 years) >401-999 = extensive levels of plaque detected (high risk of heart attack, high levels of vascular disease are present, high likelihood of at least one significant coronary narrowing) *The calcium heart score quantifies the burden of coronary calcification/plaque in the coronary arteries. The calcium heart score is not able to evaluate the presence or burden of non-calcified (i.e. soft) plaque. There is no identifiable calcification in the aortic valve, mitral annulus or mitral valve, pericardium, or myocardium. Coronary CT Angiography The coronary arterial system is right dominant. Quantitative Stenosis Grading: Left Main (LM): The left main originates normally from the left sinus of Valsalva. The LM bifurcates into the left anterior descending artery and left circumflex artery. Significant motion artifact is present. In the visualized segments, no obvious stenosis is noted. Left Anterior Descending (LAD) and Diagonal Branches: The LAD gives off at least 2 diagonal branch(es). Significant motion artifact is present. In the visualized segments, no obvious stenosis is noted. The mid to distal segments cannot be evaluated. Left Circumflex (LCX) and Obtuse Marginals (OM): The LCX gives off at least 1 Obtuse Marginal (OM) branch(es). Significant motion artifact is present. In the visualized segments, no obvious stenosis is noted. The mid to distal segments cannot be evaluated. Right Coronary Artery (RCA): The RCA originates normally from the right sinus of Valsalva. The RCA gives off a posterior descending artery (PDA) and posterolateral (PL) branches. Significant motion artifact is present. In the visualized segments, no obvious stenosis is noted. The mid to distal segments cannot be evaluated. Non-Coronary Cardiac Findings: Analysis of the left ventricular (LV) structure and function was performed after 3-D reconstruction of the LV from axial images, with user-corrected automatic contouring for assessment of LV volumes and user-defined reconstruction from oblique planes for measurement of 3-D cardiac structure and function. -The left ventricle systolic function is grossly normal. -There is no left atrial appendage filling defect. Two right pulmonary veins and two left pulmonary veins drain normally into the left atrium. -No pericardial thickening or calcification. -Central and branch pulmonary arteries in the [id number] are unremarkable. -Thoracic aorta within the visualized thoracic aortic-branches in the [id number] is unremarkable. Extracardiac Structures No significant extra-cardiac findings. Note, however, that this study is focused on the cardiac findings. IMPRESSION -Suboptimal and nondiagnostic study due to significant motion and blurring (elevated HR 100 bpm and discomfort during image acquisition). Multiple coronary segments could not be visualized. -Absence of coronary calcification with an Agatston score = 0 using the AJ-130 method. -No obvious evidence of significant flow-limiting atherosclerosis of the coronary arteries and the proximal visualized segments. However, note that multiple coronary segments could not be visualized, and therefore this study is nondiagnostic. -CAD-RADS indeterminate. Management recommendations per ACC/AHA guidelines*, as clinically appropriate. *Recommendations: CAD RADS 0: Reassurance. Consider non-atherosclerotic causes of chest pain. CAD RADS 1: Consider non-atherosclerotic causes of chest pain. Consider preventive therapy and risk factor modification. CAD RADS 2: Consider non-atherosclerotic causes of chest pain. Consider preventive therapy and risk factor modification, particularly for patients with nonobstructive plaque in multiple segments. CAD RADS 3: Consider further functional testing. Consider symptom-guided anti-ischemic and preventive pharmacotherapy as well as risk factor modification per published guideline statements. CAD RADS 4A: Consider further functional testing or invasive coronary angiography with revascularization per published guideline statements. Consider symptom-guided anti-ischemic and preventive pharmacotherapy as well as risk factor modification per published guideline statements. CAD RADS 4B: Invasive coronary angiography recommended with revascularization per published guideline statements. Consider symptom-guided anti-ischemic and preventive pharmacotherapy as well as risk factor modification per published guideline statements. CAD RADS 5: Consider invasive angiography and/or viability assessment with revascularization per published guideline statements. Consider symptom-guided anti-ischemic and preventive pharmacotherapy as well as risk factor modification per published guideline statements. CRITICAL RESULT None COMMUNICATION Per this written report The coronary and cardiac findings of this CCTA were reviewed, reported, and signed by Casimiro Coyne MD (Mathematics Instructor) Conclusion Electronically signed by : Verito Coyne MD 07/05/2024 12:46:29
[2024-07-04 09:58] VITALS: BP 131/86; PULSE 66; RESP 18; O2SAT 96
[2024-07-04 10:03] VITALS: BP 96/67; PULSE 68; RESP 18; O2SAT 99
[2024-07-04 10:08] VITALS: BP 104/70; PULSE 69; RESP 18; O2SAT 98
[2024-07-04] MEDS: IOPAMIDOL-370 (76%);100ML BOTTLE 85 ML IV (10:11)
[2024-07-04] MEDS: 0.9 % SODIUM CHLORIDE 50 ML VIAL IV (10:11)
[2024-07-04] MEDS: SODIUM CHLORIDE 0.9% 10ML SYR (RAD ONLY) 10 ML IV (10:11)
[2024-07-04 10:13] VITALS: BP 101/67; PULSE 84; RESP 18; O2SAT 99
[2024-07-04 10:15] VITALS: BP 115/60; PULSE 68; RESP 18; O2SAT 95
--- NOTE | 2024-07-04 10:16 | CA_ITS ---
APPROVED REPORT EXAM: Comprehensive 2D, Doppler, and color-flow Echocardiogram Rf Test Technician: Latha Foster RDCS Ht: 5 ft 5 in Wt: 175lbs BSA: 1.87 BP: 127/53 mmHg Indications: ABN EKG,EDEMA,SOA,CP M-Mode Dimensions RVDd 2.00 cm (0.9-2.6) LA Diam 3.41 cm (1.9-4.0) LVDd 5.22 cm (3.5-5.7) LVDs 3.33 cm (3.5-5.7) IVSd 0.82 cm (0.6-1.1) PWd 0.72 cm (0.6-1.1) EF (Teich) 65.50% FS 36.20% EDV (Teich) 130.70 mL ESV (Teich) 45.10 mL LV Diastology E Decel Time 293 (160-240 msec) E/A Ratio 1.1 Aortic Valve ELVIRA Index 1.28 cm2/m2 AoV Peak Rome. 150.0 (50-130 cm/s) AO Peak GR. 9.00 mmHg AO Mean GR. 4.40 (<5 mmHg) AO VTI 30.7 (18-25 cm) ELVIRA (VTI) 2.44 (2.5-4.5 cm2) Mitral Valve MV E Max Rome. 63.0 (40-130 cm/s) MV A Velocity 56.0 (40-130 cm/s) E/A Ratio 1.13 MV PHT 86.0 ms Left Ventricle The left ventricle is normal size. The left ventricular systolic function is normal. The left ventricular ejection fraction is within the normal range. There is increased LV wall thickness. There is normal LV segmental wall motion. The left ventricular diastolic function is normal. LVEF is 60%. Right Ventricle The right ventricle is normal size. The right ventricular systolic function is normal. Atria The left atrium size is normal. The right atrium size is normal. There is no Doppler evidence of interatrial shunt. Aortic Valve The aortic valve opens well. There is no aortic valvular stenosis. No aortic regurgitation is present. Mitral Valve The mitral valve is normal in structure. No evidence of mitral valve stenosis. Trace mitral valve regurgitation noted. Tricuspid Valve Tricuspid valve is grossly normal in structure and function. Trace tricuspid regurgitation. There is insufficient TR jet to estimate RVSP. Pulmonic Valve The pulmonary valve is normal in structure. Trace pulmonic regurgitation. Great Vessels The aortic root is normal in size. IVC is normal in size and collapses >50% with inspiration. Pericardium There is no pericardial effusion. Other Information Study Quality: Technically Difficult Conclusion Technically difficult study due to presence of artifact in apical views. Normal biventricular systolic function. No significant valvular stenosis or regurgitation. Electronically signed by : Verito Coyne MD 07/09/2024 01:37:19
== END 2024-07-04 10:15 | disposition home or self-care (01) ==
LOC: RT 08:16 → RAD 08:21
PROVIDERS: PCP Internal Medicine; Visit Provider Physician Assistant
DX: R07.9 Chest pain, unspecified (principal); R06.09 Other forms of dyspnea; R06.02 Shortness of breath
CPT/HCPCS: 75574; 93306; Q9967

== ENCOUNTER 2024-07-24 10:16 | Outpatient (CLI) | payer MEDICAID, SELFPAY ==
[2024-07-24 10:48] LABS: Basophils # 0.1 K/mm3 (0-0.2); Basophils % 0.9 % (0.1-2.0); Eosinophils # 0.3 K/mm3 (0.0-0.4); Eosinophils % 2.1 % (0.1-12.0); Hematocrit 42.5 % (37.0-47.0); Hemoglobin 14.6 g/dL (12.2-16.2); Lymphocytes # 2.7 K/mm3 (0.7-4.5); Mean Corpuscular HGB Conc 34.3 g/dL (31.8-35.4); Mean Corpuscular Hemoglobin 31.9 pg (27.0-31.2); Mean Corpuscular Volume 93.1 fl (81-99); Monocytes # 0.5 K/mm3 (0.1-1.0); Monocytes % 3.9 % (1.7-9.3); Neutrophils # 9.8 K/mm3 (1.8-7.8); Neutrophils % 73.2 % (37.0-80.0); Platelet Count 241 K/mm3 (142-424); Red Blood Count 4.56 M/mm3 (4.20-5.40); Red Cell Distribution Width 14.1 % (11.5-17.5); White Blood Count 13.4 K/mm3 (4.8-10.8)
[2024-07-24 11:08] LABS: Alanine Aminotransferase 86 U/L (12-78); Albumin Level 4.1 g/dl (3.5-5.0); Alkaline Phosphatase 80 U/L (38-126); Anion Gap 11.4 mEq/L (5-15); Aspartate Amino Transferase 50 U/L (14-36); Bilirubin,Direct 0.3 mg/dl (0.0-0.4); Bilirubin,Indirect 0.3 mg/dL (0.0-0.9); Bilirubin,Total 0.6 mg/dl (0.2-1.3); Bilirubin,Unconjugated 0.2 mg/dL (0.0-1.1); Blood Urea Nitrogen 15 mg/dl (7-17); Calcium 9.2 mg/dl (8.4-10.2); Carbon Dioxide 24 mmol/L (22.0-30.0); Chloride 109 mmol/L (98-107); Chol/HDL Ratio 4.5 (1-3.5); Cholesterol 174 mg/dl (140-200); Estimated Glomerular Filt Rate 90 ml/min (>60); GFR (African American) 109 ML/MIN (>60); Glucose 118 mg/dl (74-100); HDL Cholesterol 39 mg/dl (40-60); Potassium 4.4 mmoL/L (3.5-5.1); Sodium 140 mmol/L (136-145); Total Protein,Serum 6.4 g/dl (6.3-8.2); Triglycerides 222 mg/dl (30-150); VLDL Cholesterol 44 mg/dL (0-40)
[2024-07-24 11:19] LABS: Direct LDL Cholesterol 108.54 mg/dL (100-129)
[2024-07-24 11:23] LABS: Free T4 (Free Thyroxine) 0.99 ng/dl (0.78-2.19)
[2024-07-24 11:37] LABS: Thyroid Stimulating Hormone 1.04 uIU/mL (0.465-4.68)
== END 2024-07-24 23:59 | disposition home or self-care (01) ==
LOC: LAB 10:16
PROVIDERS: PCP Internal Medicine; Visit Provider Physician Assistant
DX: R07.9 Chest pain, unspecified (principal); R06.09 Other forms of dyspnea; E55.9 Vitamin D deficiency, unspecified; R60.9 Edema, unspecified
CPT/HCPCS: 36415; 80048; 80061; 80076; 84439; 84443; 85025

== ENCOUNTER 2024-07-26 11:09 | Day surgery (SDC) | payer MEDICAID, SELFPAY ==
[2024-07-24 11:14] VITALS: BMI 29.4
[2024-07-26] MEDS: LACTATED RINGERS 1000ML 1,000 ML 25 ML IV (11:21)
[2024-07-26 11:26] VITALS: BP 122/74; PULSE 60; RESP 18; TEMP 36.5; O2SAT 97
--- NOTE | 2024-07-26 11:42 | EXP.ANES.CKL ---
[facility] Disclaimer: The information contained in this section may have been updated after the patient was seen, as this information can be updated by other users. Medical History Edema of both lower extremities SOB (shortness of breath) Abnormal electrocardiogram [ECG] [EKG] Neuropathy Foot pain Surgical History History of hysterectomy Family History Grandmother Cancer breast Social History Smoking Status: Current every day smoker smoking status start date: 1 pack per day years smoked: 25 alcohol intake: never substance use type: denies use current occupational status: employed Travel in the last 8 weeks: None housing: house marital status: education level: college service: No [facility] Anesthesia Checklist Patient Identification Patient Identification: Arm Band Structural Data Admitted From: Home Planned Operative Procedure/s: EGD Consent for Planned Operative Procedure(s) Verified: Yes Verified Documents: Surgical Consent and History and Physical NPO Status Verified Time NPO: 00:00 Additional verifications Anesthesia Reactions: Yes Hx Blood Transfusions: No Blood Transfusion Reaction: Yes Airway Assessment Mallampati Score:: Class II C-Spine Mobility Assessed: Yes TMJ Mobility Assessed: Yes Dentition: Edentulous Neurological Assessment Level of Consciousness: Awake, Alert and Appropriate Anesthesia Plan Anesthesia Risk discussed: Yes Anesthesia Plan: Verified ASA Class: III Anesthesia Type: MAC
[2024-07-26 11:48] LABS: HCG Qualitative, Serum Negative (Negative)
--- NOTE | 2024-07-26 11:56 | P.HP_ITS ---
History of Present Illness *Admission Date: 07/26/24 *History of present illness: Mrs. Smallwood is a 44-year-old female who is here for diagnostic upper endoscopy. The patient did have an MRI which showed a small mass in the epigastric area. There also appeared to be a polypoid mass within the duodenum near the ampulla of Vater measuring 11 x 13 x 23 mm and there was mild prominence of the biliary system. The patient is postcholecystectomy. She has normal liver chemistries. The patient did have an ERCP at the [facility] 8 years ago. She does report nausea, fullness and globus sensation. The examination is deemed medically necessary for EGD. The patient has been seen, interviewed and examin ed prior to the procedure by both myself and the anesthesia provider. [facility] Disclaimer: The information contained in this section may have been updated after the patient was seen, as this information can be updated by other users. Medical History Edema of both lower extremities SOB (shortness of breath) Abnormal electrocardiogram [ECG] [EKG] Neuropathy Foot pain Surgical History History of hysterectomy Family History Grandmother Cancer breast Social History Smoking Status: Current every day smoker smoking status start date: 1 pack per day years smoked: 25 alcohol intake: never substance use type: denies use current occupational status: employed Travel in the last 8 weeks: None housing: house marital status: education level: college service: No Other Medical History Have you received the Flu Vaccine for this season: No Have you received the Pneumonia Vaccine: No Review of Systems Review of Systems Review of systems (narrative): Negative *Cardiovascular Comments: Negative *Gastrointestinal Comments: Negative *Genitourinary Comments: Negative *Musculoskeletal Comments: Negative *Neurologic Comments: Negative Meds Home Medications and Allergies Home Medications ?Medication ?Instructions ?Recorded ?Confirmed ?Type buprenorphine 8 mg-naloxone 2 mg 3 film sublingual DAILY 01/19/24 07/24/24 History sublingual film (Suboxone) gabapentin 800 mg tablet 800 mg PO TID 30 days #90 tabs 06/07/24 07/24/24 Rx lidocaine 5 % topical patch See Rx Instructions .Route 06/13/24 07/24/24 Rx .COMPLEX #30 patches cholecalciferol (vitamin D3) 50 50 mcg PO DAILY vitamin d 06/14/24 07/24/24 Rx mcg (2,000 unit) capsule deficiency #90 caps ergocalciferol (vitamin D2) 1,250 1,250 mcg PO WEEKLY vitamin d 06/14/24 07/24/24 Rx mcg (50,000 unit) capsule deficiency #13 caps nicotine (polacrilex) 4 mg buccal 4 mg buccal Q8H PRN nicotine 06/14/24 07/24/24 Rx mini lozenge cravings #81 ea diclofenac sodium 1 % topical gel See Rx Instructions .Route 07/11/24 07/24/24 Rx .COMPLEX #100 grams furosemide 20 mg tablet 40 mg PO Q OTHER DAY 07/24/24 07/24/24 History New Prescriptions to Start Prescriptions: Allergies Allergy/AdvReac Type Severity Reaction Status Date / Time Anesthetics - Amide Type - Allergy Severe Other Verified 07/26/24 11:23 Select A clindamycin Allergy Severe Anaphylaxis Verified 07/26/24 11:23 Penicillins Allergy Severe Anaphylaxis Verified 07/26/24 11:23 Iodide Allergy Unknown Hypertensio Uncoded 07/24/24 09:34 n Exam Data for Last 24 hours Vital signs and Labs for Last 24 Hours: Temp Pulse Resp BP Pulse Ox O2 Del Method 97.7 F 60 18 122/74 97 Room Air 07/26/24 11:26 07/26/24 11:26 07/26/24 11:26 07/26/24 11:26 07/26/24 11:26 07/26/24 11:26 Laboratory Results - last 24 hr 07/26/24 11:24: Serum HCG, Qual Negative I & O for Last 24 hours: Intake & Output 07/23/24 07/24/24 07/25/24 07/26/24 23:59 23:59 23:59 23:59 Weight 177 lb *Routine HEENT Exam Head: Present normocephalic Eye: Present EOMI and PERRL ENT: Present mucous membranes moist *Routine Neck Exam Neck: Present supple *Routine Respiratory Exam Respiratory: Present CTA bilaterally *Routine Cardiovascular Exam Cardiovascular: Present RRR *Routine Abdominal Exam Abdominal: Present soft and normoactive bowel sounds; Absent tenderness *Routine Rectal Exam Rectal:: deferred *Routine Genitalia Exam Genitalia:: deferred *Routine Extremities Exam Extremities: Absent cyanosis, clubbing or edema *Routine Skin Exam Skin: Present warm; Absent rash *Routine Neurological Exam Neurological: Present alert and oriented X3 Assessment and Plan *Assessment and plan (1) Abnormal MRI of abdomen: Status: Acute Category: Medical Code(s): R93.5 - Abnormal findings on diagnostic imaging of other abdominal regions, including retroperitoneum (2) Duodenal mass: Status: Acute Category: Medical Code(s): K31.89 - Other diseases of stomach and duodenum (3) Gastric mass: Status: Acute Category: Medical Code(s): K31.89 - Other diseases of stomach and duodenum (4) Nausea: Status: Acute Category: Medical Code(s): R11.0 - Nausea (5) Bloating: Status: Acute Category: Medical Code(s): R14.0 - Abdominal distension (gaseous) (6) Nausea: Status: Acute Category: Medical Code(s): R11.0 - Nausea Plan A/P: 1. Abnormal MRI with gastric and duodenal mass with symptoms of nausea and bloating is the preprocedural diagnosis. The patient will be anesthetized/sedated using MAC sedation. The patient has been seen and examined. Cardiac and lung assessment prior to the examination is stable. Proceed with planned EGD
[2024-07-26 11:57] VITALS: O2SAT 97
--- NOTE | 2024-07-26 12:07 | P.PCN_ITS ---
[facility] Procedure Note Date: 07/26/24 Time: 12:19 Procedure Note:: Upper Endoscopy Procedure Report: Esophagogastroduodenoscopy with cold biopsies and TTS balloon dilation Endoscopost: Zach Bowie II, MD Referring Physician: Andriy Nolen DO Date of Procedure: July 26, 2024 Equipment: Olympus GIF 190 standard upper endoscope Sedation: MAC sedation Indications: Mrs. Smallwood is a 44-year-old female with epigastric abdominal pain, bloating and nausea. She had an abdominal MRI that showed a polypoid mass within the duodenum just proximal to the ampulla Vater. This measured 11 x 13 x 23 mm. The patient did have some mild prominence of the extrapelvic biliary system and is postcholecystectomy. 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 She does have a family history of Crohn's disease (father, mother and daughter). She does struggle with constipation and takes senna daily. She reports epigastric abdominal pain and globus sensation. She has had negative cardiac evaluation. Procedure: Prior to the procedure, a history and physical exam was performed, and patient's medications and allergies were reviewed. The risks, benefits and alternatives of the sedation and procedure were discussed with the patient. All questions were answered and informed consent was obtained. The patient was brought to the procedure room. Patient identification and proposed procedure were verified by the physician and the nurse. The patient was placed in a left lateral decubitus position and the scope was passed under direct vision. Throughout the proc edure, the patient's blood pressure, pulse, and oxygen saturations were monitored continuously. The upper GI endoscopy was accomplished without difficulty. The patient tolerated the procedure well. Findings: The scope was passed directly into the upper esophagus and advanced to the fourth portion of the duodenum and proximal jejunum. The ampulla was well-visualized and the duodenal and jejunal conniventes were normal. The ampulla appeared normal. Contralateral to the ampulla in the second portion of the duodenum was a benign-appearing submucosal lesion and possibly submucosal lipoma. Biopsies were taken from the surface. The scope was withdrawn through a normal duodenal bulb and pylorus into the stomach. There was mild pylorospasm. There was marked bile reflux with moderate linear reactive gastropathy of antrum and mild chronic gastritis of the body and fundus. Upon retroflexion, there was a very small sliding 1 to 2 cm hiatal hernia. Biopsies were taken from the lesser curvature to rule out H. pylori. The scope was then withdrawn into the esophagus. There was no evidence of reflux esophagitis or Rivera's. Biopsies were taken at the GE junction. There were strong tertiary contractions and evidence of moderate esophageal dysmotility. The entire esophagus was dilated to 60 Turkmen/20 mm with a TTS hydrostatic balloon. There was mild resistance at the cricopharyngeus. The remainder of the esophageal mucosa was normal. Impression: 1. Nonerosive GERD with moderate esophageal dysmotility, cricopharyngeal spasm and very small sliding hiatal hernia status post dilation to 20 mm 2. Bile reflux with moderate linear reactive gastropathy of antrum and mild chronic gastritis of body and fundus 3. Submucosal duodenal polypoid lesion?suspect benign lipoma and second portion contralateral to ampulla with normal-appearing ampulla Plan: I will follow-up the biopsies. The patient does have moderate bile reflux with reactive gastropathy. I suspect that most of her symptoms of dyspepsia are related to and driven by lower intestinal gas pressure gradients/high gas pressure buildup resulting in backflow of bile and peptic fluid from the duodenum into the stomach (duodenal reflux). This gas production (carbon dioxide, hydrogen, methane, etc.) from the lower intestinal tract is the byproduct of colonic bacterial fermentation. This colonic fermentation occurs when there is more carbohydrate (dietary starches, sugars and high residue plant fiber) substrate that does not get digested (in the middle or small intestine) or occurs when there is colonic fecal buildup and colonic bacterial overgrowth. This indeed leads to bloating and the gas pressure buildup with gas pressure gradients that do drive backflow and dyspepsia. We will discuss dietary measures and treatment options.
[2024-07-26 12:24] VITALS: BP 114/66; PULSE 69; RESP 18; TEMP 36.6; O2SAT 95
[2024-07-26 12:34] VITALS: BP 103/63; PULSE 60; RESP 18; O2SAT 95
[2024-07-26 12:44] VITALS: BP 123/81; PULSE 63; RESP 18; O2SAT 95
[2024-07-26 12:54] VITALS: BP 111/68; BP 124/86; PULSE 59; PULSE 61; RESP 18; O2SAT 97
== END 2024-07-26 12:55 | disposition home or self-care (01) ==
PROVIDERS: PCP Internal Medicine; Visit Provider Internal Medicine Gastroenterology
PROC: 0DJ08ZZ Inspection of Upper Intestinal Tract, Via Natural or Artificial Opening Endoscopic (ICD-10-PCS; CPT 43235; principal; 2024-07-26 12:30)
DX: R93.5 Abnormal findings on diagnostic imaging of other abdominal regions, including retroperitoneum (principal); K31.89 Other diseases of stomach and duodenum; R11.0 Nausea; R14.0 Abdominal distension (gaseous); K30 Functional dyspepsia; K22.4 Dyskinesia of esophagus; J39.2 Other diseases of pharynx; K44.9 Diaphragmatic hernia without obstruction or gangrene; K21.9 Gastro-esophageal reflux disease without esophagitis; K31.9 Disease of stomach and duodenum, unspecified; K29.70 Gastritis, unspecified, without bleeding; K31.7 Polyp of stomach and duodenum; Z72.0 Tobacco use
CPT/HCPCS: 43239; 43249; 84703; C1726; J2704; J7120

== ENCOUNTER 2024-08-09 09:15 | Outpatient (CLI) | payer MEDICAID, SELFPAY ==
[2024-08-09 19:27] LABS: 25-OH Vitamin D, Total 29.3 ng/mL (30-100)
[2024-08-09 19:36] LABS: Hemoglobin A1C 5.9 % (4.0-6.0)
[2024-08-11 09:00] LABS: HBsAg Screen Negative (Negative); HCV Ab Non Reactive (Non Reactive); Hep A Ab, IGM Negative (Negative); Hep B Core Ab, IgM Negative (Negative)
== END 2024-08-09 23:59 | disposition home or self-care (01) ==
LOC: LAB.DROPOF 08-10 09:16
PROVIDERS: PCP Internal Medicine; Visit Provider Internal Medicine
DX: R73.09 Other abnormal glucose (principal); E55.9 Vitamin D deficiency, unspecified; Z91.89 Other specified personal risk factors, not elsewhere classified
CPT/HCPCS: 80074; 82306; 83036

== ENCOUNTER 2024-08-13 09:50 | Outpatient (POV) | payer MEDICAID, SELFPAY ==
--- NOTE | 2024-08-13 10:33 | EXP.PAIN.OV ---
HPI Data of Consult Patient: new to practice Consult date: 08/13/24 Requesting Physician: Ana Hinton APRN Primary Care Provider: Andriy Nolen DO Consult Narrative Reason for consult: Low back pain, bilateral hip pain, buttocks pain, upper thigh pain History of present illness: Ms. Smallwood is a 44 year old female who presents today as a new patient. She has a referral from Dr. Green's office. Today she rates her pain a 6 out of 10. Patient states that she has chronic pain throughout her low back and bilateral hips and buttocks area that does go into her upper thighs. Patient states that this is all related to a work injury she had about a year and a half ago. She states initially the symptoms only went into her upper right thigh however over time it is going into the left upper leg as well. Patient describes it as a constant aching sensation almost like a toothache that does have some burning and tingling sensations. Patient states that it used to be certain positions really aggravated the pain such as prolonged standing, walking, sitting however almost now it is constant. Patient does states she has tried oral medications along with heat and ice and topicals with minimal changes. Patient has gone to physical therapy in the past however had issues with Worker's Comp. covering these visits and was not able to continue them. Patient did go to the chiropractor for multiple visits with no changes and did also try yoga. Patient has continued at home stretching exercise for longer than 12 weeks with no additional changes. Patient denies any prior surgery or injection history. Patient is currently on gabapentin from an outside provider along with Suboxone. Her Jass has been reviewed. CC: Ana Hinton APRN [facility] Disclaimer: The information contained in this section may have been updated after the patient was seen, as this information can be updated by other users. Medical History Edema of both lower extremities SOB (shortness of breath) Abnormal electrocardiogram [ECG] [EKG] Neuropathy Foot pain Surgical History History of hysterectomy Family History Grandmother Cancer breast Social History Smoking Status: Current every day smoker smoking status start date: 1 pack per day years smoked: 25 alcohol intake: never substance use type: denies use current occupational status: employed Travel in the last 8 weeks: None housing: house marital status: education level: college service: No Review of Systems Review of Systems Review of systems:: pertinent systems reviewed and negative unless documented below Review of systems (narrative): Review of Systems: General: No recent weight changes, no fever, no sleep disturbances Respiratory: No cough, no shortness of air, no recurring pulmonary infections Cardiovascular/peripheral vascular: No chest pain, no palpitations, no edema, no shortness of breath Gastrointestinal: No new onset incontinence, normal bowel movements reported Genitourinary: No new onset incontinence Musculoskeletal: Low back pain, bilateral hip pain, buttocks pain, upper thigh pain Psychiatric: [Normal mood/affect] Neurological: [Denies weakness in extremities], [denies balance issues] Meds Home Medications and Allergies Home Medications ?Medication ?Instructions ?Recorded ?Confirmed ?Type buprenorphine 8 mg-naloxone 2 mg 3 film sublingual DAILY 01/19/24 08/09/24 History sublingual film (Suboxone) lidocaine 5 % topical patch See Rx Instructions .Route 06/13/24 08/09/24 Rx .COMPLEX #30 patches cholecalciferol (vitamin D3) 50 50 mcg PO DAILY vitamin d 06/14/24 08/09/24 Rx mcg (2,000 unit) capsule deficiency #90 caps ergocalciferol (vitamin D2) 1,250 1,250 mcg PO WEEKLY vitamin d 06/14/24 08/09/24 Rx mcg (50,000 unit) capsule deficiency #13 caps nicotine (polacrilex) 4 mg buccal 4 mg buccal Q8H PRN nicotine 06/14/24 08/09/24 Rx mini lozenge cravings #81 ea diclofenac sodium 1 % topical gel See Rx Instructions .Route 07/11/24 08/09/24 Rx .COMPLEX #100 grams furosemide 20 mg tablet 40 mg PO Q OTHER DAY 07/24/24 08/09/24 History gabapentin 800 mg tablet 800 mg PO TID 30 days #90 tabs 08/09/24 08/09/24 Rx rosuvastatin 5 mg tablet 5 mg PO DAILY #30 tabs 08/09/24 08/09/24 Rx New Prescriptions to Start Prescriptions: Allergies Allergy/AdvReac Type Severity Reaction Status Date / Time Anesthetics - Amide Type - Allergy Severe Other Verified 08/09/24 08:40 Select A clindamycin Allergy Severe Anaphylaxis Verified 08/09/24 08:40 Penicillins Allergy Severe Anaphylaxis Verified 08/09/24 08:40 Iodide Allergy Unknown Hypertensio Uncoded 07/24/24 09:34 n Objective Narrative: Physical Exam: General: Alert and oriented x3, no acute distress, pleasant and cooperative Lungs: Respirations even and unlabored, symmetrical chest expansion Eyes: PERRL Musculoskeletal: Flexion and extension of lumbar [spine] somewhat guarded secondary to pain, [antalgic gait noted] point tenderness along bilateral SIs with positive bilateral Chad's, Mauri's, Gaenslen's, compression and distraction exam Neurological: Speech clear, no gross sensory deficit Additional findings Additional findings: FINDINGS: Multiplanar MR imaging of the lumbar spine was performed without and with contrast. On the sagittal T2-weighted images, disc degeneration is seen at several levels. The vertebral alignment is normal. There is no evidence of fracture. The conus is seen at approximately the L1 level and has an unremarkable appearance. Several vertebral body hemangiomas are present. There is a 9 mm decreased signal focus in the posterior L2 vertebral body, not significantly changed from the prior exam. L1-2: There is a small left paracentral disc protrusion, stable since the prior exam. L2-3: An annular bulge is present with facet arthropathy. No significant canal stenosis or neuroforaminal narrowing is seen. L3-4: An annular bulge is present. There is a small right foraminal disc protrusion, with mild right neural foraminal narrowing. L4-5: An annular bulge is present. There is facet arthropathy and mild bilateral neural foraminal narrowing. L5-S1: An annular bulge is present. Facet arthropathy is present. No significant canal stenosis or neuroforaminal narrowing is seen. No abnormal contrast enhancement is identified. IMPRESSION: Multilevel mild degenerative disc disease and spondylosis with areas of neural foraminal narrowing as described. 9 mm decreased signal focus in the posterior L2 vertebral body, not significantly changed since October. Would consider follow-up MRI in 12 months or bone scan as clinically indicated. Reviewed, Interpreted and Dictated by Omkar Daley III, MD Transcribed by Sade Garcia Authenticated and [facility] Assessment and Plan *Assessment and plan (1) Bilateral sacroiliitis: Status: Acute Category: Medical Code(s): M46.1 - Sacroiliitis, not elsewhere classified (2) Low Back Pain: Status: Acute Qualifiers: Chronicity: acute Back pain laterality: bilateral Sciatica presence: with sciatica Sciatica laterality: sciatica of right side Qualified Code(s): M54.41 - Lumbago with sciatica, right side Category: Medical Code(s): M54.50 - Low back pain, unspecified (3) Bilateral hip pain: Status: Acute Category: Medical Code(s): M25.551 - Pain in right hip; M25.552 - Pain in left hip Plan Patient is experiencing worsening pain along the low back and bilateral hips. They did have limited range of motion of the lumbar spine along with point tenderness along bilateral SI joints and a positive bilateral Chad's, Mauri's, Gaenslen's, compression and distraction exam. I did discuss with the patient that I do believe they would benefit from bilateral SI injections. Risk and benefits were discussed with the patient and they would like to proceed forward with this option. Patient has tried and failed conservative therapy including physical therapy, chiropractor therapy, yoga and continued at home stretching exercise for longer than 12 weeks. Patient will be scheduled for bilateral SI injections under fluoroscopy. Patient has been instructed to contact the clinic with any concerns before the next appointment. Dr. Hair has reviewed this note and agrees with this plan of care. This note was dictated using voice recognition software and make contain errors or omissions. All injections are used with Lidocaine or Bupivacaine and Depo Medrol.
[2024-08-13 10:41] VITALS: BP 118/78; PULSE 68; RESP 18; O2SAT 95; BMI 28.3
== END 2024-08-13 23:59 | disposition home or self-care (01) ==
LOC: SC.PAIN 09:51
PROVIDERS: PCP Internal Medicine; Visit Provider Nurse Practitioner Family
DX: M46.1 Sacroiliitis, not elsewhere classified (principal); M54.41 Lumbago with sciatica, right side; M25.551 Pain in right hip; M25.552 Pain in left hip; F17.210 Nicotine dependence, cigarettes, uncomplicated
CPT/HCPCS: 99202; G0463

== ENCOUNTER 2024-09-25 10:06 | Day surgery (SDC) | payer MEDICAID, SELFPAY ==
[2024-09-25 10:30] VITALS: BP 117/72; PULSE 65; RESP 18; O2SAT 93; BMI 28.3
--- NOTE | 2024-09-25 10:41 | P.PCN_ITS ---
Procedure Date: 09/25/24 Time: 10:55 Anesthesiologist:: Cruz Escamilla CRNA Complications:: None Pre-procedure Diagnosis:: Bilateral sacroiliitis Post-procedure Diagnosis:: Same Indications for Procedure:: Patient is a pleasant 44-year-old female comes our clinic today for bilateral sacroiliac joint injections cortisone and local anesthetic. Patient describes low lumbar back pain off the midline bilaterally as constant, dull, aching. She reports having difficulty with ambulating. Difficulty transitioning from sitting to standing. She rates her pain 7/10. Procedure Details:: Procedure: Bilateral sacroiliac joint injections under fluoroscopy Informed consent was obtained and the risks and benefits of the procedure were explained to the patient.~ The patient was taken to the procedure room and noninvasive monitors were placed including a noninvasive blood pressure cuff and pulse oximeter.~ The patient was placed prone on the procedure table. Both hips were cleansed using Betadine as a cleansing solution. C-arm fluoroscopy was used to view the right sacroiliac joint.~ The skin and subcutaneous tissues were anesthetized using lidocaine 1.5% and a 25-gauge needle.~ After this, a 22-gauge spinal needle was inserted under fluoroscopic guidance into the inferior aspect of the right sacroiliac joint.~ Omnipaque dye was injected and good spread was seen throughout the joint.~ After this, approximately 5 mL of bupivacaine, 0.25% and Depo-Medrol, 40 mg was incrementally injected into the right sacroiliac joint. We then moved to the left sacroiliac joint.~ The skin and subcutaneous tissues were anesthetized using lidocaine 1.5% and a 25-gauge needle.~ After this, a 22- gauge spinal needle was inserted under fluoroscopic guidance into the inferior aspect of the left sacroiliac joint.~ Omnipaque dye was injected and good spread was seen throughout the joint. After this, approximately 5 mL of bupivacaine, 0.25% and Depo-Medrol, 40 mg was incrementally injected into the left sacroiliac joint.~ The patient tolerated the procedure well with no complications. The patient was observed in the Pain Clinic and then was discharged home neurologically intact. Plan and Disposition:: Patient was discharged without incident.
[2024-09-25 11:02] VITALS: BP 107/71; PULSE 57; RESP 18; O2SAT 100
[2024-09-25] MEDS: LIDOCAINE 1% 5ML PF VIAL 5 ML (11:05)
[2024-09-25 11:06] VITALS: BP 119/85; PULSE 54; RESP 18; O2SAT 96
[2024-09-25 11:11] VITALS: BP 119/85; PULSE 54; RESP 18; O2SAT 96
== END 2024-09-25 11:02 | disposition home or self-care (01) ==
PROVIDERS: PCP Internal Medicine; Visit Provider Nurse Anesthetist, Certified Registered
DX: M46.1 Sacroiliitis, not elsewhere classified (principal)
CPT/HCPCS: 27096; G0260; J1010

== ENCOUNTER 2024-10-04 10:38 | Outpatient (POV) | payer MEDICAID, SELFPAY ==
[2024-10-04 11:05] VITALS: BP 120/63; PULSE 62; RESP 18; O2SAT 100; BMI 30.2
--- NOTE | 2024-10-04 11:20 | EXP.PAIN.SOA ---
[facility] Disclaimer: The information contained in this section may have been updated after the patient was seen, as this information can be updated by other users. Medical History Edema of both lower extremities SOB (shortness of breath) Abnormal electrocardiogram [ECG] [EKG] Neuropathy Foot pain Surgical History History of hysterectomy Family History Grandmother Cancer breast Social History Smoking Status: Current every day smoker smoking status start date: 1 pack per day years smoked: 25 alcohol intake: never substance use type: denies use current occupational status: employed Travel in the last 8 weeks: None housing: house marital status: education level: college service: No PM Subjective & Objective Subjective Subjective:: Patient is a pleasant 44-year-old female who presents today for follow-up of bilateral SI injections on 09/25/2024. She does report 80% relief following this injection and feels like it is still working significantly well. Patient states she has been able to increase her activity with overall decreased pain and feels much more functional. Today she rates her pain however a 6 out of 10. She states her main complaint is leg symptoms. Patient states she is experiencing numbness and tingling that radiates down from her low back and does interfere with her ability perform activities of daily living such as cooking and cleaning. Patient states that it is much worse the more activity she does. She states that her legs feel heavy. She is interested in additional injection therapy for this issue. She does state that the right leg symptoms are worse than the left. Patient denies prior injections for this. Her Jass has been reviewed and is appropriate. Review of Systems: General: No recent weight changes, no fever, no sleep disturbances Respiratory: No cough, no shortness of air, no recurring pulmonary infections Cardiovascular/peripheral vascular: No chest pain, no palpitations, no edema, no shortness of breath Gastrointestinal: No new onset incontinence, normal bowel movements reported Genitourinary: No new onset incontinence Musculoskeletal: Low back pain, bilateral leg numbness tingling Psychiatric: [Normal mood/affect] Neurological: [Denies weakness in extremities], [denies balance issues] Pain at rest (0-10 scale): 6 Objective Objective:: Physical Exam: General: Alert and oriented x3, no acute distress, pleasant and cooperative Lungs: Respirations even and unlabored, symmetrical chest expansion Eyes: PERRL Musculoskeletal: Flexion and extension of lumbar [spine] somewhat guarded secondary to pain, [antalgic gait noted] positive leg raise Neurological: Speech clear, no gross sensory deficit Has patient had previous pain injection?: Yes Percent improvement in pain since last injection: 80% Conservative treatment options previously tried: Home exercise plan Length of treatment: Longer than 12 weeks Meds Home Medications and Allergies Home Medications ?Medication ?Instructions ?Recorded ?Confirmed ?Type buprenorphine 8 mg-naloxone 2 mg 3 film sublingual DAILY 01/19/24 10/04/24 History sublingual film (Suboxone) lidocaine 5 % topical patch See Rx Instructions .Route 06/13/24 10/04/24 Rx .COMPLEX #30 patches cholecalciferol (vitamin D3) 50 50 mcg PO DAILY vitamin d 06/14/24 10/04/24 Rx mcg (2,000 unit) capsule deficiency #90 caps ergocalciferol (vitamin D2) 1,250 1,250 mcg PO WEEKLY vitamin d 06/14/24 10/04/24 Rx mcg (50,000 unit) capsule deficiency #13 caps diclofenac sodium 1 % topical gel See Rx Instructions .Route 07/11/24 10/04/24 Rx .COMPLEX #100 grams furosemide 20 mg tablet 40 mg PO Q OTHER DAY 07/24/24 10/04/24 History rosuvastatin 5 mg tablet 5 mg PO DAILY #30 tabs 08/09/24 10/04/24 Rx gabapentin 800 mg tablet 800 mg PO TID 30 days #90 tabs 10/01/24 10/04/24 Rx nicotine (polacrilex) 4 mg buccal 4 mg buccal Q8H PRN nicotine 10/01/24 10/04/24 Rx mini lozenge cravings #81 ea semaglutide (weight loss) 0.25 0.25 mg (0.5 mL) SQ WEEKLY 10/01/24 10/04/24 Rx mg/0.5 mL subcutaneous pen injector Prediabetes and excessive weight #2 mL New Prescriptions to Start Prescriptions: Allergies Allergy/AdvReac Type Severity Reaction Status Date / Time Anesthetics - Amide Type - Allergy Severe Other Verified 10/01/24 09:02 Select A clindamycin Allergy Severe Anaphylaxis Verified 10/01/24 09:02 Penicillins Allergy Severe Anaphylaxis Verified 10/01/24 09:02 iodine Allergy Verified 10/01/24 09:02 Assessment and Plan *Assessment and plan (1) DDD (degenerative disc disease): Status: Acute Qualifiers: Spinal region: lumbosacral Disc-related pain type: discogenic back pain and lower extremity pain Qualified Code(s): M51.372 - Other intervertebral disc degeneration, lumbosacral region with discogenic back pain and lower extremity pain Category: Medical (2) Lumbar radiculopathy, chronic: Status: Acute Category: Medical Code(s): M54.16 - Radiculopathy, lumbar region Plan Patient is experiencing worsening pain in her bilateral legs with numbness and tingling radiating from her low back. Patient did have limited range of motion of her lumbar spine with a positive leg raise. I did discuss with patient that I do believe they would benefit from a lumbar epidural steroid injection. Risk and benefits were discussed with patient and the patient would like to proceed forward with this plan of care. Patient is not on any blood thinner. Patient has tried and failed conservative therapy including continued at home stretching exercise for longer than 12 weeks between injections. Patient did have a bulge as well as a protruding disc with narrowing at the L3-L4 level. Patient is starting physical therapy. We will schedule the patient for an LESI L3-L4 under fluoroscopy. Patient has been instructed to contact the clinic with any concerns before the next appointment. Dr. Hair has reviewed this note and agrees with this plan of care. This note was dictated using voice recognition software and make contain errors or omissions. All injections are used with Lidocaine, Bupivacaine and Depo Medrol. Occasionally urine drug screen is needed to verify patient's compliance with our office pain contract. This is ordered based off specific treatments related to chronic pain with the potential to abuse certain medications.
== END 2024-10-04 23:59 | disposition home or self-care (01) ==
LOC: SC.PAIN 10:38
PROVIDERS: PCP Internal Medicine; Visit Provider Nurse Practitioner Family
DX: M51.372 Other intervertebral disc degeneration, lumbosacral region with discogenic back pain and lower extremity pain (principal); M54.16 Radiculopathy, lumbar region; F17.210 Nicotine dependence, cigarettes, uncomplicated; Z73.89 Other problems related to life management difficulty
CPT/HCPCS: 99212; G0463

== ENCOUNTER 2024-10-16 10:02 | Day surgery (SDC) | payer MEDICAID, SELFPAY ==
[2024-10-16 10:07] VITALS: BP 111/75; PULSE 88; RESP 18; TEMP 36.8; O2SAT 99; BMI 30.2
[2024-10-16 10:31] VITALS: BP 120/71; PULSE 67; RESP 16; O2SAT 95
[2024-10-16 11:20] VITALS: BP 127/90; PULSE 73; RESP 18; O2SAT 96
[2024-10-16] MEDS: methylPREDNISolone ACETATE 80MG/ML VIAL 80 MG (11:20)
[2024-10-16 11:21] VITALS: BP 127/90; PULSE 73; RESP 18; O2SAT 96
--- NOTE | 2024-10-16 11:36 | EXP.PAIN.PRO ---
Procedure Date: 10/16/24 Time: 11:00 Anesthesiologist:: Cruz Escamilla CRNA Complications:: None Pre-procedure Diagnosis:: Degenerative disc lumbar spine multilevels for lumbar radiculopathy. Post-procedure Diagnosis:: Same. Indications for Procedure:: Patient is a very pleasant 44-year-old female who comes our clinic today for lumbar epidural steroid injection at L3-4 level. Patient describes low lumbar back pain as well as bilateral hip and leg radicular symptoms. She rates her pain 7/10. Procedure Details:: Procedure: Lumbar epidural steroid injection under fluoroscopy Informed consent was obtained and the risks and benefits of the procedure were explained to the patient. The patient was taken to the procedure room and noninvasive monitors placed, including noninvasive blood pressure cuff and pulse oximeter. The back was viewed using C-arm Fluoroscopy and prepped using Chloraprep as a cleansing solution and the L3-4 interspace was palpated. Skin and subcutaneous tissues were anesthetized using lidocaine 1.5% and a 25-gauge needle. After this, an 18-gauge Touhy epidural needle was placed into the L3-4 interspace and advanced using fluoroscopic guidance and loss of resistance to air until the epidural space was encountered. After confirmation of needle placement in the epidural space, with dye, a solution containing normal saline, 3 mL and Depo-Medrol 80 mg were incrementally injected into the lumbar epidural space. The patient tolerated the procedure well with no complications. The patient was observed in the Pain Clinic and then discharged home neurologically intact. Plan and Disposition:: Patient was discharged without incident.
== END 2024-10-16 10:31 | disposition home or self-care (01) ==
LOC: SC.PAINP 10:03
PROVIDERS: PCP Internal Medicine; Visit Provider Nurse Anesthetist, Certified Registered
DX: M51.16 Intervertebral disc disorders with radiculopathy, lumbar region (principal)
CPT/HCPCS: 62323; J1010

== ENCOUNTER 2024-11-05 09:21 | Outpatient (POV) | payer MEDICAID, SELFPAY ==
[2024-11-05 09:36] VITALS: BP 129/85; PULSE 78; RESP 18; O2SAT 96; BMI 29.9
--- NOTE | 2024-11-05 10:12 | A.OFFVIS_ITS ---
[facility] Disclaimer: The information contained in this section may have been updated after the patient was seen, as this information can be updated by other users. Medical History Edema of both lower extremities SOB (shortness of breath) Abnormal electrocardiogram [ECG] [EKG] Neuropathy Foot pain Surgical History History of hysterectomy Family History Grandmother Cancer breast Social History Smoking Status: Current every day smoker smoking status start date: 1 pack per day years smoked: 25 alcohol intake: never substance use type: denies use current occupational status: employed Travel in the last 8 weeks: None housing: house marital status: education level: college service: No PM Subjective & Objective Subjective Subjective:: Patient is a pleasant 44-year-old female who presents today for follow-up of lumbar epidural steroid injection Of L3-L4 on 10/16/2024. Patient today rates her pain a 6 out of 10. She denies any new falls or injuries. Patient states that she only noticed more improvement while it was not for at least an hour of 50% relief. Patient does state that she still has chronic neck pain as well and that she was seeing Dr. Hinton here at [facility] for possible carpal tunnel surgery. She states that the last time she went and saw him he was stating that he really wanted to see what was going on with her neck because he believed the pain in her hands was more related to it than carpal tunnel itself. Patient states that insurance then did deny this additional imaging and she is not really sure to what extent why. Patient is interested in any help we may be able to provide. Prior to the epidural she did have bilateral SI injections that did provide 80% relief and lasted and has not had that same pain for a little while. Her Jass has been reviewed and is appropriate. Review of Systems: General: No recent weight changes, no fever, no sleep disturbances Respiratory: No cough, no shortness of air, no recurring pulmonary infections Cardiovascular/peripheral vascular: No chest pain, no palpitations, no edema, no shortness of breath Gastrointestinal: No new onset incontinence, normal bowel movements reported Genitourinary: No new onset incontinence Musculoskeletal: Low back pain, neck pain Psychiatric: [Normal mood/affect] Neurological: [Denies weakness in extremities], [denies balance issues] Pain at rest (0-10 scale): 6 Objective Objective:: Physical Exam: General: Alert and oriented x3, no acute distress, pleasant and cooperative Lungs: Respirations even and unlabored, symmetrical chest expansion Eyes: PERRL Musculoskeletal: Flexion and extension of cervical and lumbar [spine] somewhat guarded secondary to pain, [antalgic gait noted] Neurological: Speech clear, no gross sensory deficit Has patient had previous pain injection?: Yes Percent improvement in pain since last injection: 50% Conservative treatment options previously tried: Home exercise plan Length of treatment: Longer than 12 weeks Meds Home Medications and Allergies Home Medications ?Medication ?Instructions ?Recorded ?Confirmed ?Type buprenorphine 8 mg-naloxone 2 mg 3 film sublingual DAILY 01/19/24 11/05/24 History sublingual film (Suboxone) lidocaine 5 % topical patch See Rx Instructions .Route 06/13/24 11/05/24 Rx .COMPLEX #30 patches cholecalciferol (vitamin D3) 50 50 mcg PO DAILY vitamin d 06/14/24 11/05/24 Rx mcg (2,000 unit) capsule deficiency #90 caps ergocalciferol (vitamin D2) 1,250 1,250 mcg PO WEEKLY vitamin d 06/14/24 11/05/24 Rx mcg (50,000 unit) capsule deficiency #13 caps diclofenac sodium 1 % topical gel See Rx Instructions .Route 07/11/24 11/05/24 Rx .COMPLEX #100 grams furosemide 20 mg tablet 40 mg PO Q OTHER DAY 07/24/24 11/05/24 History rosuvastatin 5 mg tablet 5 mg PO DAILY #30 tabs 08/09/24 11/05/24 Rx gabapentin 800 mg tablet 800 mg PO TID 30 days #90 tabs 10/01/24 11/05/24 Rx nicotine (polacrilex) 4 mg buccal 4 mg buccal Q8H PRN nicotine 10/01/24 11/05/24 Rx mini lozenge cravings #81 ea semaglutide (weight loss) 0.25 0.25 mg (0.5 mL) SQ WEEKLY 10/01/24 11/05/24 Rx mg/0.5 mL subcutaneous pen injector Prediabetes and excessive weight #2 mL New Prescriptions to Start Prescriptions: Allergies Allergy/AdvReac Type Severity Reaction Status Date / Time clindamycin Allergy Severe Anaphylaxis Verified 10/23/24 10:42 Penicillins Allergy Severe Anaphylaxis Verified 10/23/24 10:42 iodine Allergy Rash Verified 10/23/24 10:42 Assessment and Plan *Assessment and plan (1) Cervical radiculopathy: Status: Acute Category: Medical Code(s): M54.12 - Radiculopathy, cervical region (2) Lumbar radiculopathy, chronic: Status: Acute Category: Medical Code(s): M54.16 - Radiculopathy, lumbar region Plan I did discuss at length with the patient regarding the advanced imaging of her neck. I will order physical therapy for her neck and upper extremity pain. I did also discuss about adding meloxicam 15 mg daily to her medication regimen. I will send a 2-week supply of this medication and she was counseled to take this medication with food to minimize GI upset and discontinue all other NSAIDs while taking this medication. Patient denied any heart or kidney issues. I will also order the patient a DEXA scan due to a history of hysterectomy and concerns of osteoporosis. Patient will return to clinic in 1 month for r eevaluation of symptoms and plan of care. Patient has been instructed to contact the clinic with any concerns before the next appointment. Dr. Hair has reviewed this note and agrees with this plan of care. This note was dictated using voice recognition software and make contain errors or omissions. All injections are used with Lidocaine, Bupivacaine and Depo Medrol. Occasionally urine drug screen is needed to verify patient's compliance with our office pain contract. This is ordered based off specific treatments related to chronic pain with the potential to abuse certain medications.
== END 2024-11-05 23:59 | disposition home or self-care (01) ==
PROVIDERS: PCP Internal Medicine; Visit Provider Nurse Practitioner Family
DX: M54.12 Radiculopathy, cervical region (principal); M54.16 Radiculopathy, lumbar region; F17.210 Nicotine dependence, cigarettes, uncomplicated
CPT/HCPCS: 99212; G0463

== ENCOUNTER 2024-11-14 13:15 | Outpatient (POV) | payer MEDICAID, SELFPAY ==
[2024-11-14 13:25] VITALS: BP 122/80; PULSE 74; RESP 14; O2SAT 96; BMI 29.9
--- NOTE | 2024-11-14 13:37 | EXP.PAIN.SOA ---
[facility] Disclaimer: The information contained in this section may have been updated after the patient was seen, as this information can be updated by other users. Medical History Edema of both lower extremities SOB (shortness of breath) Abnormal electrocardiogram [ECG] [EKG] Neuropathy Foot pain Surgical History History of hysterectomy Family History Grandmother Cancer breast Social History Smoking Status: Current every day smoker smoking status start date: 1 pack per day years smoked: 25 alcohol intake: never substance use type: denies use current occupational status: other Travel in the last 8 weeks: None housing: house marital status: education level: college service: No PM Subjective & Objective Subjective Subjective:: Patient is a pleasant 44-year-old female who presents today for worsening pain. She rates her pain today as 7 out of 10. She denies any new falls or injuries. She does state that she feels like a lot of her pain is more into her hips most prominent along the right side. She denies any radiating symptoms down. She states that it is worse with increased activity or prolonged positioning. She does state the pain is interfering with her ability perform activities of daily living such as cooking and cleaning. At our last visit we did order the patient meloxicam however she states that she did try it but she felt like it caused her kidneys to physically hurt and that she stopped taking it after a day. She states today that she has not noticed that same pain and acknowledges that it may be something else going on as well. Patient was also ordered a DEXA scan however she is waiting to hear back from them with scheduling this. Patient does state that she did get her MRI approved on her right hip and is having it later today. Patient denies any other changes. Patient previously had a lumbar epidural of L3-L4 back in October that did provide 50% of relief however was temporary. Her Jass has been reviewed and is appropriate. Review of Systems: General: No recent weight changes, no fever, no sleep disturbances Respiratory: No cough, no shortness of air, no recurring pulmonary infections Cardiovascular/peripheral vascular: No chest pain, no palpitations, no edema, no shortness of breath Gastrointestinal: No new onset incontinence, normal bowel movements reported Genitourinary: No new onset incontinence Musculoskeletal: Bilateral hip pain Psychiatric: [Normal mood/affect] Neurological: [Denies weakness in extremities], [denies balance issues] Pain at rest (0-10 scale): 7 Objective Objective:: Physical Exam: General: Alert and oriented x3, no acute distress, pleasant and cooperative Lungs: Respirations even and unlabored, symmetrical chest expansion Eyes: PERRL Musculoskeletal: Flexion and extension of lumbar [spine] somewhat guarded secondary to pain, [antalgic gait noted] point tenderness along bilateral SIs with positive bilateral Chad's, Mauri's, Gaenslen's, compression and distraction exam Neurological: Speech clear, no gross sensory deficit Has patient had previous pain injection?: No Conservative treatment options previously tried: Home exercise plan Length of treatment: Longer than 12 weeks Meds Home Medications and Allergies Home Medications ?Medication ?Instructions ?Recorded ?Confirmed ?Type buprenorphine 8 mg-naloxone 2 mg 3 film sublingual DAILY 01/19/24 11/14/24 History sublingual film (Suboxone) lidocaine 5 % topical patch See Rx Instructions .Route 06/13/24 11/14/24 Rx .COMPLEX #30 patches cholecalciferol (vitamin D3) 50 50 mcg PO DAILY vitamin d 06/14/24 11/14/24 Rx mcg (2,000 unit) capsule deficiency #90 caps ergocalciferol (vitamin D2) 1,250 1,250 mcg PO WEEKLY vitamin d 06/14/24 11/14/24 Rx mcg (50,000 unit) capsule deficiency #13 caps diclofenac sodium 1 % topical gel See Rx Instructions .Route 07/11/24 11/14/24 Rx .COMPLEX #100 grams furosemide 20 mg tablet 40 mg PO Q OTHER DAY 07/24/24 11/14/24 History rosuvastatin 5 mg tablet 5 mg PO DAILY #30 tabs 08/09/24 11/14/24 Rx gabapentin 800 mg tablet 800 mg PO TID 30 days #90 tabs 10/01/24 11/14/24 Rx nicotine (polacrilex) 4 mg buccal 4 mg buccal Q8H PRN nicotine 10/01/24 11/14/24 Rx mini lozenge cravings #81 ea semaglutide (weight loss) 0.25 0.25 mg (0.5 mL) SQ WEEKLY 10/01/24 11/14/24 Rx mg/0.5 mL subcutaneous pen injector Prediabetes and excessive weight #2 mL meloxicam 15 mg tablet 15 mg PO DAILY #14 tabs 11/05/24 11/14/24 Rx New Prescriptions to Start Prescriptions: Allergies Allergy/AdvReac Type Severity Reaction Status Date / Time clindamycin Allergy Severe Anaphylaxis Verified 10/23/24 10:42 Penicillins Allergy Severe Anaphylaxis Verified 10/23/24 10:42 iodine Allergy Rash Verified 10/23/24 10:42 Assessment and Plan *Assessment and plan (1) Bilateral sacroiliitis: Status: Acute Category: Medical Code(s): M46.1 - Sacroiliitis, not elsewhere classified Plan Patient is experiencing worsening pain along the low back and bilateral hips. They did have limited range of motion of the lumbar spine along with point tenderness along bilateral SI joints and a positive bilateral Chad's, Mauri's, Gaenslen's, compression and distraction exam. I did discuss with the patient that I do believe they would benefit from bilateral SI injections. Risk and benefits were discussed with the patient and they would like to proceed forward with this option. Patient has tried and failed conservative therapy including continued at home stretching exercise for longer than 12 weeks between injections. Patient is scheduled to start physical therapy. Patient's last SI injection was back in September that did provide 80% improvements with overall decreased pain. I did discuss with the patient that I will plan on giving her to follow-up appointments with 1 next week to review over her right hip MRI findings. I will also send in a 2-week dose of tizanidine 2 mg twice daily. Patient will be scheduled for bilateral SI injections under fluoroscopy. Patient has been instructed to contact the clinic with any concerns before the next appointment. Dr. Hair has reviewed this note and agrees with this plan of care. This note was dictated using voice recognition software and make contain errors or omissions. All injections are used with Lidocaine or Bupivacaine and Depo Medrol.
== END 2024-11-14 23:59 | disposition home or self-care (01) ==
PROVIDERS: PCP Internal Medicine; Visit Provider Nurse Practitioner Family
DX: M46.1 Sacroiliitis, not elsewhere classified (principal); F17.210 Nicotine dependence, cigarettes, uncomplicated; Z73.89 Other problems related to life management difficulty
CPT/HCPCS: 99212; G0463

== ENCOUNTER 2024-11-14 15:43 | Outpatient (CLI) | payer MEDICAID, SELFPAY ==
--- NOTE | 2024-11-14 15:44 | MR_ITS ---
FINAL REPORT CLINICAL HISTORY: cervicalgia, pain in the arms and wrists FINDINGS: Multi planar MR imaging was obtained of the cervical spine. There is abnormal decreased signal throughout the cervical discs. The vertebrae are of normal height. There is loss of the normal cervical lordosis. There is moderate loss of height at the C5-6 and C6-7 disc levels. There is no malalignment. The cervical cord demonstrates normal signal and configuration. C2-C3: There is no evidence of significant disc bulge or protrusion. There is no significant facet hypertrophy. C3-C4: There is no evidence of significant disc bulge or protrusion. There is no significant facet hypertrophy. C4-C5: There is no evidence of significant disc bulge or protrusion. There is no significant facet hypertrophy. C5-C6: Mild diffuse disc bulge. Endplate hypertrophy eccentric to the left with mild left neuroforaminal narrowing. C6-C7: Mild diffuse disc bulge. Endplate hypertrophy with mild left neuroforaminal narrowing. C7-T1: There is no evidence of significant disc bulge or protrusion. There is no significant facet hypertrophy. IMPRESSION: Diffuse disc bulges at C5-6 and C6-7 with mild left neuroforaminal narrowing. Reviewed, Interpreted and Dictated by Reid Melgar MD Transcribed by Araceli To Authenticated and [facility]
== END 2024-11-14 23:59 | disposition home or self-care (01) ==
LOC: RAD 15:44
PROVIDERS: PCP Internal Medicine; Visit Provider Orthopaedic Surgery
DX: M54.2 Cervicalgia (principal); M54.12 Radiculopathy, cervical region
CPT/HCPCS: 72141

== ENCOUNTER 2024-11-22 09:44 | Outpatient (POV) | payer MEDICAID, SELFPAY ==
--- NOTE | 2024-11-22 10:50 | A.OFFVIS_ITS ---
[facility] Disclaimer: The information contained in this section may have been updated after the patient was seen, as this information can be updated by other users. Medical History Edema of both lower extremities SOB (shortness of breath) Abnormal electrocardiogram [ECG] [EKG] Neuropathy Foot pain Surgical History History of hysterectomy Family History Grandmother Cancer breast Social History Smoking Status: Current every day smoker smoking status start date: 1 pack per day years smoked: 25 alcohol intake: never substance use type: denies use current occupational status: other Travel in the last 8 weeks: None housing: house marital status: education level: college service: No Have you lived/traveled outside [place] in past 30 days?: No Contact w/someone who lives/traveled outside [place] past 30 days?: No Exposure to someone with infectious disease in past 14 days?: No Do you have a fever (greater than 100.4 F or 38 C)?: No Have you tested positive for COVID-19: No Exposed to someone with COVID-19 in past 14 days?: No Do you have a sore throat?: No Do you have a cough?: No Do you have shortness of breath?: No Do you have a headache?: No Do you have any weakness?: No Are you experiencing any nausea/vomitting?: No Do you have any diarrhea?: No Are you experiencing any unusual bleeding?: No Do you have any muscle aches/pain?: No Do you have any abdominal pain?: No Are you experiencing loss of taste or smell?: No PM Subjective & Objective Subjective Subjective:: Patient is a pleasant 44-year-old female who presents today for follow-up of cervical MRI. Today she rates her pain an 8 out of 10. Patient denies any new trauma or injury. She does state that she is still having both the low back pain that goes into her hips as well as her neck that does radiate down into her arms with numbness and tingling. Patient was scheduled for bilateral SI injections earlier however had to reschedule this appointment due to illness. She is scheduled for these injections now on December 11. Patient does state that she is scheduled to see her orthopedic provider later today regarding possible surgical intervention. Patient is asking whether or not based off the cervical MRI if it is something that we would think she would require surgery for. Her Jass has been reviewed and is appropriate. Review of Systems: General: No recent weight changes, no fever, no sleep disturbances Respiratory: No cough, no shortness of air, no recurring pulmonary infections Cardiovascular/peripheral vascular: No chest pain, no palpitations, no edema, no shortness of breath Gastrointestinal: No new onset incontinence, normal bowel movements reported Genitourinary: No new onset incontinence Musculoskeletal: Low back pain, hip pain, neck pain, bilateral upper arm pain Psychiatric: [Normal mood/affect] Neurological: [Denies weakness in extremities], [denies balance issues] Pain at rest (0-10 scale): 8 Objective Objective:: Physical Exam: General: Alert and oriented x3, no acute distress, pleasant and cooperative Lungs: Respirations even and unlabored, symmetrical chest expansion Eyes: PERRL Musculoskeletal: Flexion and extension of cervical [spine] somewhat guarded secondary to pain, [antalgic gait noted] positive Spurling's test Neurological: Speech clear, no gross sensory deficit FINDINGS: Multi planar MR imaging was obtained of the cervical spine. There is abnormal decreased signal throughout the cervical discs. The vertebrae are of normal height. There is loss of the normal cervical lordosis. There is moderate loss of height at the C5-6 and C6-7 disc levels. There is no malalignment. The cervical cord demonstrates normal signal and configuration. C2-C3: There is no evidence of significant disc bulge or protrusion. There is no significant facet hypertrophy. C3-C4: There is no evidence of significant disc bulge or protrusion. There is no significant facet hypertrophy. C4-C5: There is no evidence of significant disc bulge or protrusion. There is no significant facet hypertrophy. C5-C6: Mild diffuse disc bulge. Endplate hypertrophy eccentric to the left with mild left neuroforaminal narrowing. C6-C7: Mild diffuse disc bulge. Endplate hypertrophy with mild left neuroforaminal narrowing. C7-T1: There is no evidence of significant disc bulge or protrusion. There is no significant facet hypertrophy. IMPRESSION: Diffuse disc bulges at C5-6 and C6-7 with mild left neuroforaminal narrowing. Reviewed, Interpreted and Dictated by Reid Melgar MD Transcribed by Araceli To Authenticated and . [facility] Has patient had previous pain injection?: No Conservative treatment options previously tried: Home exercise plan Length of treatment: Longer than 12 weeks Meds Home Medications and Allergies Home Medications ?Medication ?Instructions ?Recorded ?Confirmed ?Type buprenorphine 8 mg-naloxone 2 mg 3 film sublingual DAILY 01/19/24 11/14/24 History sublingual film (Suboxone) lidocaine 5 % topical patch See Rx Instructions .Route 06/13/24 11/14/24 Rx .COMPLEX #30 patches cholecalciferol (vitamin D3) 50 50 mcg PO DAILY vitamin d 06/14/24 11/14/24 Rx mcg (2,000 unit) capsule deficiency #90 caps ergocalciferol (vitamin D2) 1,250 1,250 mcg PO WEEKLY vitamin d 06/14/24 11/14/24 Rx mcg (50,000 unit) capsule deficiency #13 caps diclofenac sodium 1 % topical gel See Rx Instructions .Route 07/11/24 11/14/24 Rx .COMPLEX #100 grams furosemide 20 mg tablet 40 mg PO Q OTHER DAY 07/24/24 11/14/24 History rosuvastatin 5 mg tablet 5 mg PO DAILY #30 tabs 08/09/24 11/14/24 Rx gabapentin 800 mg tablet 800 mg PO TID 30 days #90 tabs 10/01/24 11/14/24 Rx nicotine (polacrilex) 4 mg buccal 4 mg buccal Q8H PRN nicotine 10/01/24 11/14/24 Rx mini lozenge cravings #81 ea semaglutide (weight loss) 0.25 0.25 mg (0.5 mL) SQ WEEKLY 10/01/24 11/14/24 Rx mg/0.5 mL subcutaneous pen injector Prediabetes and excessive weight #2 mL meloxicam 15 mg tablet 15 mg PO DAILY #14 tabs 11/05/24 11/14/24 Rx tizanidine 2 mg tablet 2 mg PO BID #28 tabs 11/14/24 Rx New Prescriptions to Start Prescriptions: Allergies Allergy/AdvReac Type Severity Reaction Status Date / Time clindamycin Allergy Severe Anaphylaxis Verified 10/23/24 10:42 Penicillins Allergy Severe Anaphylaxis Verified 10/23/24 10:42 iodine Allergy Rash Verified 10/23/24 10:42 Assessment and Plan *Assessment and plan (1) Cervical radiculopathy: Status: Acute Category: Medical Code(s): M54.12 - Radiculopathy, cervical region (2) DDD (degenerative disc disease): Status: Acute Qualifiers: Spinal region: lumbosacral Disc-related pain type: discogenic back pain and lower extremity pain Qualified Code(s): M51.372 - Other intervertebral disc degeneration, lumbosacral region with discogenic back pain and lower extremity pain Category: Medical (3) Bilateral sacroiliitis: Status: Acute Category: Medical Code(s): M46.1 - Sacroiliitis, not elsewhere classified Plan I did review over at length with the patient regarding her cervical MRI and we did discuss that she is a beneficial candidate for cervical epidural most likely at the C5-C6 level based off her MRI. Patient was rescheduled for her bilateral SI injections and I did discuss with her that we can plan on the cervical epidural following her SI injections. Patient does agree with this plan of care. I did also review with the patient that I do not believe her cervical findings are significant enough that she would be a candidate for surgical intervention. I did recommend that I would try conservative approach such as the injection therapy. Patient will be returning to our clinic for her bilateral SI injections on December 11. Patient has been instructed to contact the clinic with any concerns before the next appointment. Dr. Hair has reviewed this note and agrees with this plan of care. This note was dictated using voice recognition software and make contain errors or omissions. All injections are used with Lidocaine, Bupivacaine and Depo Medrol. Occasionally urine drug screen is needed to verify patient's compliance with our office pain contract. This is ordered based off specific treatments related to chronic pain with the potential to abuse certain medications.
[2024-11-22 11:07] VITALS: BP 116/74; PULSE 70; O2SAT 97; BMI 29.9
== END 2024-11-22 23:59 | disposition home or self-care (01) ==
LOC: SC.PAIN 09:44
PROVIDERS: PCP Internal Medicine; Visit Provider Nurse Practitioner Family
DX: M54.12 Radiculopathy, cervical region (principal); M51.372 Other intervertebral disc degeneration, lumbosacral region with discogenic back pain and lower extremity pain; M46.1 Sacroiliitis, not elsewhere classified; F17.210 Nicotine dependence, cigarettes, uncomplicated
CPT/HCPCS: 99212; G0463

== ENCOUNTER 2025-01-10 10:06 | Outpatient (CLI) | payer MEDICAID, SELFPAY ==
[2025-01-10 19:19] LABS: Alanine Aminotransferase 54 U/L (12-78); Albumin Level 4.3 g/dl (3.5-5.0); Albumin/Globulin Ratio 1.8 (1.1-1.8); Alkaline Phosphatase 79 U/L (38-126); Anion Gap 7.6 mEq/L (5-15); Aspartate Amino Transferase 34 U/L (14-36); Bilirubin,Total 0.5 mg/dl (0.2-1.3); Blood Urea Nitrogen 15 mg/dl (7-17); Calcium 9.1 mg/dl (8.4-10.2); Carbon Dioxide 26 mmol/L (22.0-30.0); Chloride 110 mmol/L (98-107); Chol/HDL Ratio 4.1 (1-3.5); Cholesterol 169 mg/dl (140-200); Estimated Glomerular Filt Rate 90 ml/min (>60); GFR (African American) 109 ML/MIN (>60); Globulin 2.4 g/dL (1.3-3.2); Glucose 97 mg/dl (74-100); HDL Cholesterol 41 mg/dl (40-60); Potassium 4.6 mmoL/L (3.5-5.1); Sodium 139 mmol/L (136-145); Total Protein,Serum 6.7 g/dl (6.3-8.2); Triglycerides 138 mg/dl (30-150); VLDL Cholesterol 28 mg/dL (0-40)
[2025-01-10 19:30] LABS: Direct LDL Cholesterol 104.87 mg/dL (100-129)
[2025-01-10 21:32] LABS: Hemoglobin A1C 5.9 % (4.0-6.0)
== END 2025-01-10 23:59 | disposition home or self-care (01) ==
LOC: LAB.DROPOF 01-11 13:09
PROVIDERS: PCP Family Medicine; Visit Provider Family Medicine
DX: E78.2 Mixed hyperlipidemia (principal); E55.9 Vitamin D deficiency, unspecified; R73.9 Hyperglycemia, unspecified
CPT/HCPCS: 80053; 80061; 82306; 83036

== ENCOUNTER 2025-01-17 16:18 | Outpatient (CLI) | payer MEDICAID, SELFPAY ==
--- NOTE | 2025-01-17 16:30 | MM_ITS ---
PROCEDURE INFORMATION: Exam: Bilateral Screening 3D Mammography Exam date and time: 01/17/2025 4:22 PM Age: 44 years old Clinical indication: Screening mammogram TECHNIQUE: Imaging protocol: Bilateral Screening tomosynthesis and 2D mammography including computer-aided detection (CAD) when performed. COMPARISON: No relevant prior studies available. FINDINGS: MAMMOGRAPHY: Breast composition: There are scattered areas of fibroglandular density. Mass within the upper inner left middle 1/3 should be further assessed with spot views in CC/MLO projection. Ultrasound should also be scheduled. No suspicious findings on the right No axillary adenopathy IMPRESSION: Mass within the upper inner left middle 1/3 should be further assessed with spot views in CC/MLO projection. Ultrasound should also be scheduled. ASSESSMENT: BI-RADS Category 0: Incomplete - Need Additional Imaging Evaluation
== END 2025-01-17 23:59 | disposition home or self-care (01) ==
LOC: RAD 16:19
PROVIDERS: PCP Family Medicine; Visit Provider Family Medicine
DX: Z12.31 Encounter for screening mammogram for malignant neoplasm of breast (principal); N63.22 Unspecified lump in the left breast, upper inner quadrant
CPT/HCPCS: 77063; 77067

== ENCOUNTER 2025-01-29 11:15 | Day surgery (SDC) | payer MEDICAID, SELFPAY ==
[2025-01-29 11:22] VITALS: BP 126/75; PULSE 69; RESP 16; TEMP 36.8; O2SAT 95; BMI 28.3
[2025-01-29 11:29] VITALS: BP 143/84; PULSE 75; RESP 18; O2SAT 97
[2025-01-29] MEDS: DEXAMETHASONE 10MG/ML 1ML VIAL 10 MG (11:29)
[2025-01-29] MEDS: LIDOCAINE 1% 5ML PF VIAL 5 ML (11:29)
[2025-01-29 11:31] VITALS: BP 143/84; PULSE 75; RESP 18; O2SAT 97
[2025-01-29 11:33] VITALS: BP 116/73; PULSE 73; RESP 16; O2SAT 100
--- NOTE | 2025-01-29 11:43 | P.PCN_ITS ---
Procedure Date: 01/29/25 Time: 11:20 Anesthesiologist:: Cruz Escamilla CRNA Complications:: None Pre-procedure Diagnosis:: Bilateral sacroiliitis Post-procedure Diagnosis:: Same. Indications for Procedure:: Patient is a 44-year-old female comes our clinic today for bilateral sacroiliac joint injection of cortisone and local anesthetic. Patient describes low lumbar back pain off midline bilaterally. Bilateral posterior hip pain. Difficulty transitioning from sitting to standing. Difficulty with ambulation due to posterior hip pain bilaterally. She rates her pain 7/10. Procedure Details:: Procedure: Bilateral sacroiliac joint injections under fluoroscopy Informed consent was obtained and the risks and benefits of the procedure were explained to the patient.~ The patient was taken to the procedure room and noninvasive monitors were placed including a noninvasive blood pressure cuff and pulse oximeter.~ The patient was placed prone on the procedure table. Both hips were cleansed using Betadine as a cleansing solution. C-arm fluoroscopy was used to view the right sacroiliac joint.~ The skin and subcutaneous tissues were anesthetized using lidocaine 1.5% and a 25-gauge needle.~ After this, a 22-gauge spinal needle was inserted under fluoroscopic guidance into the inferior aspect of the right sacroiliac joint.~ Omnipaque dye was injected and good spread was seen throughout the joint.~ After this, approximately 5 mL of bupivacaine, 0.25% and Depo-Medrol, 40 mg was incrementally injected into the right sacroiliac joint. We then moved to the left sacroiliac joint.~ The skin and subcutaneous tissues were anesthetized using lidocaine 1.5% and a 25-gauge needle.~ After this, a 22- gauge spinal needle was inserted under fluoroscopic guidance into the inferior aspect of the left sacroiliac joint.~ Omnipaque dye was injected and good spread was seen throughout the joint. After this, approximately 5 mL of bupivacaine, 0.25% and Depo-Medrol, 40 mg was incrementally injected into the left sacroiliac joint.~ The patient tolerated the procedure well with no complications. The patient was observed in the Pain Clinic and then was discharged home neurologically intact. Plan and Disposition:: Patient was discharged without incident.
== END 2025-01-29 11:33 | disposition home or self-care (01) ==
PROVIDERS: PCP Family Medicine; Visit Provider Nurse Anesthetist, Certified Registered
DX: M46.1 Sacroiliitis, not elsewhere classified (principal)
CPT/HCPCS: G0260; J1100

== ENCOUNTER 2025-01-30 14:19 | Outpatient (CLI) | payer MEDICAID, SELFPAY ==
--- NOTE | 2025-01-30 14:30 | US_ITS ---
PROCEDURE INFORMATION: Exam: US Left Breast, Complete MG Left Diagnostic Breast Tomosynthesis MG Left Diagnostic Mammography Exam date and time: 01/30/2025 2:10 PM Age: 44 years old Clinical indication: Callback for a finding in the left breast on screening mammogram TECHNIQUE: Imaging protocol: Complete ultrasound of all four quadrants of the left breast and the retroareolar regions, including ultrasound of the axilla when performed. Left Diagnostic tomosynthesis and 2D mammography including computer-aided detection (CAD) when performed. Unilateral or bilateral exam. Left Diagnostic mammography including computer-aided detection (CAD) when performed. Unilateral exam. COMPARISON: MG MM DIG SCREENING MAMM BI W/CAD 01/17/2025 4:22 PM FINDINGS: MAMMOGRAPHY: Breast composition: There are scattered areas of fibroglandular density. Breast mammogram findings: In the upper inner aspect of the left breast, there is a low-density ovoid minimally lobulated 0.5 cm mass. There is no associated distortion or calcifications. ULTRASOUND: Breast ultrasound findings: Complete scanning of the left breast is performed. There is a septated cyst in the left breast 11 o'clock axis, 2 cm from the nipple measuring 0.6 x 0.3 x 0.4 cm that is believed to correlate to the mammogram finding. There is an incidental complicated cyst in the left breast lower outer quadrant, 3 cm from the nipple that measures 0.5 x 0 point 4 x 0.3 cm. There is no shadowing or distortion. No axillary adenopathy. IMPRESSION: Probably benign complicated cysts in the left breast 11 o'clock axis, 2 cm from the nipple and in the left breast lower outer quadrant, 3 cm from the nipple. A follow-up left breast diagnostic mammogram and ultrasound in 6 months is recommended. ASSESSMENT: BI-RADS Category 3: Probably benign.
== END 2025-01-30 23:59 | disposition home or self-care (01) ==
LOC: RAD 14:19
PROVIDERS: PCP Family Medicine; Visit Provider Family Medicine
DX: N60.02 Solitary cyst of left breast (principal); R92.8 Other abnormal and inconclusive findings on diagnostic imaging of breast
CPT/HCPCS: 76641; 77061; 77065; G0279

== ENCOUNTER 2025-02-20 14:28 | Outpatient (POV) | payer MEDICAID, SELFPAY ==
--- OUTSIDE RECORDS SUMMARY | 2025-02-20 14:32 | XMS_ITS | Clinical Summary ---
Author Organization [facility] Address [address] [place] [address] Care Team Providers Care Turn Sewer Name Role Phone Dave Stephen MD Primary Care Provider [phone] Allergies Active Allergy Reactions Criticality Noted Date Comments Clindamycin Rash Low 07/01/2017 Iodinated Contrast Media Medium 07/01/2017 Other reaction(s): Arrhythmia Nitrous Oxide Other (See Comments) 04/07/2023 Neurological problems Penicillins Anaphylaxis High 07/01/2017 Sulfamethoxazole-Trim ethoprim Rash Low 07/01/2017 Medications furosemide (LASIX) 20 MG tablet Take 1 tablet (20 mg total) by mouth daily. 03/03/2023 Active buprenorphine-n aloxone (SUBOXONE) 8-[address] 2 tablets under the tongue daily. Max Daily Amount: 2 tablets 02/16/2023 Active Active Problems No known active problems Social History Tobacco Use Types Packs/Day Years Used Date Smoking Tobacco: Every Day Cigarettes Smokeless Tobacco: Never Tobacco Cessation:Ready to Q uit: Not Asked; Counseling Given: Not Answered Alcohol Use Standard Drinks/Week Comments Never 0 (1 standard drink = 0.6 oz pur e alcohol) Interpersonal Safety Answer Date Record ed Family or friends hurt you Not on file 09/23 Family or friends insult you Not on file Family or friends threaten you Not on file 0 09/23/2023 Family or friends scream or curse at you Not on file 09/23/2023 Housing Stability Answer Date Recorded Living situation today Not on file Living situation problems Not on file 2023 Food Insecurity Answer Date Recorded Food run out past 12 months Not on file 09/05 Food did not last past 12 months Not on file 09/23/2023 Employment Answer Date Recorded Help finding and keeping a job Not on file 0 09/23/2023 Family and Community Support Answer Jose e Recorded Help with Day to Day Activities Not on file 09/23/2023 Feeling Lonely or Isolated Not on file 09/23 Educational Attainment Answer Date Bert rded Speak language other than Ghanaian at home Not on file 09/23/2023 Want help with school or training Not on file 09/23/2023 Depression Answer Date Recorded PHQ-2 Risk Not on file 09/23/2023 Disabilities Answer Date Recorded Difficulty concentrating Not on file 024 Difficulty doing errands alone Not on file 0 09/23/2023 Substance Use Answer Date Recorded Used prescription meds for non-medical reasons N ot on file 09/23/2023 Used illegal drugs past 12 months Not on file 09/23/2023 Comments No Sex and Gender Information Value Date Recorded Sex Assigned at Not on file Legal Sex Female 5:43 PM CDT Gender Identity Not on file Sexual Orientation Not on file Last Filed Vital Signs Vital Sign Reading Time Taken Comments Blood Pressure 142/74 04/07/2023 8:55 PM EDT Pulse 80 04/07/2023 8:55 PM EDT Temperature 37.2 C (98.9 F) 04/07/2023 8:55 PM EDT Respiratory Rate 18 04/07/2023 8:55 PM EDT Oxygen Saturation 96% 04/07/2023 8:55 PM EDT Inhaled Oxygen Concentration - - Weight 70.8 kg (156 lb) 04/07/2023 8:55 PM EDT Height 165.1 cm (5' 5 ) 04/07/2023 8:55 PM EDT Body Mass Index 25.96 04/07/2023 8:55 PM EDT Plan of Treatment Health Maintenance Due Date Last Done Comments CT Colonography 1979 Colonoscopy 1979 Colorectal Cancer Screening 1979 FOBT/FIT 1979 Fit-DNA (Cologuard) 1979 Sigmoidoscopy 1979 Depression Screening (12+) 1991 HIV Screening 1994 Hepatitis C Screening 1997 DTAP/TDAP/TD VACCINES (1 - Tdap) 1998 Pneumococcal Vaccine: 0-49 Years (1 of 2 - PCV) 1997 Pap Smear 2000 Breast Cancer Screening 2019 Tobacco Cessation Counseling and Screening (12+) 04/0704/07/2023 COVID-19 VACCINE ( - 2023- season) 2024 Lipid Panel 2024 Influenza Vaccine (Season Ended) 2025 Insurance [facility] Care Teams Turn Sewer Relationship Specialty Start Date End Date Dave Stephen MD [address] [place] [id number] PCP - General Family Medicine 04/07/23
--- OUTSIDE RECORDS SUMMARY | 2025-02-20 14:32 | XMS_ITS | Referral Summary ---
Author Organization [facility] Address [address] [place] [address] Care Team Providers Care Director Metabolism Name Role Phone Dave Stephen MD Primary Care Provider [phone] Allergies Active Allergy Reactions Criticality Noted Date [...] Date Bert rded Speak language other than Mozambican at home Not on file 09/23/2023 Want [...] 04/07/2023 8:55 PM EDT Plan of Treatment Not on file Insurance [id number] [id number] [facility] Care Teams Director Metabolism Relationship Specialty Start Date End Date Dave Stephen MD [address] [place] [id number] PCP - General Family Medicine 04/07/23
--- NOTE | 2025-02-20 14:35 | EXP.PAIN.SOA ---
[facility] Disclaimer: The information contained in this section may have been updated after the patient was seen, as this information can be updated by other users. Medical History Abnormal mammogram of left breast Lesion of lumbar spine Breast cancer screening by mammogram Dysphagia Edema of both lower extremities SOB (shortness of breath) Abnormal electrocardiogram [ECG] [EKG] Neuropathy Foot pain Surgical History History of hysterectomy Family History Grandmother Cancer breast Social History Smoking Status: Current every day smoker smoking status start date: 1 pack per day years smoked: 25 alcohol intake: never substance use type: denies use current occupational status: other Travel in the last 8 weeks?: None housing: house marital status: education level: college service: No PM Subjective & Objective Subjective Subjective:: Patient is a pleasant 44-year-old female who presents today for follow-up of bilateral SI injections on 01/29/2025. Today she rates her pain a 6 out of 10. Patient states that she did have approximately 80 percent improvement following these injections. She states that she has noticed a significant improvement of her low back symptoms and she is able to stand for longer period of time without having to stop and take a break. Patient is stating that she is still having neck pain that does radiate into her upper extremities with numbness and tingling. Patient does state that this pain is bothering her more and more now that her low back is much better. Patient has continued conservative treatment.. She states the pain does interfere with her ability perform activities of daily living such as cooking and cleaning. We had discussed the possibility of a future epidural and she would like to proceed forward with this option. Patient has tried and failed conservative therapy. At her last visit we had tried her on meloxicam however she felt like this aggravated some of her fluid in her legs. Patient states she was not sure if it was more in her mind however did not notice significant relief either. Patient is interested in any help we may be able to provide. Her Jass has been reviewed and is appropriate. Review of Systems: General: No recent weight changes, no fever, no sleep disturbances Respiratory: No cough, no shortness of air, no recurring pulmonary infections Cardiovascular/peripheral vascular: No chest pain, no palpitations, no edema, no shortness of breath Gastrointestinal: No new onset incontinence, normal bowel movements reported Genitourinary: No new onset incontinence Musculoskeletal: Neck pain, bilateral arm pain with numbness Psychiatric: [Normal mood/affect] Neurological: [Denies weakness in extremities], [denies balance issues] Pain at rest (0-10 scale): 6 Objective Objective:: Physical Exam: General: Alert and oriented x3, no acute distress, pleasant and cooperative Lungs: Respirations even and unlabored, symmetrical chest expansion Eyes: PERRL Musculoskeletal: Flexion and extension of cervical [spine] somewhat guarded secondary to pain, [antalgic gait noted] positive Spurling's test Neurological: Speech clear, no gross sensory deficit Has patient had previous pain injection?: Yes Percent improvement in pain since last injection: 80 Conservative treatment options previously tried: Home exercise plan Length of treatment: Longer than 12 weeks Meds Home Medications and Allergies Home Medications ?Medication ?Instructions ?Recorded ?Confirmed ?Type buprenorphine 8 mg-naloxone 2 mg 3 film sublingual DAILY 01/19/24 02/06/25 History sublingual film (Suboxone) lidocaine 5 % topical patch See Rx Instructions .Route 06/13/24 02/06/25 Rx .COMPLEX #30 patches diclofenac sodium 1 % topical gel See Rx Instructions .Route 07/11/24 02/06/25 Rx .COMPLEX #100 grams furosemide 20 mg tablet 40 mg PO Q OTHER DAY 07/24/24 02/06/25 History nicotine (polacrilex) 4 mg buccal 4 mg buccal Q8H PRN nicotine 10/01/24 02/06/25 Rx mini lozenge cravings #81 ea cholecalciferol (vitamin D3) 50 50 mcg PO DAILY #90 caps 01/11/25 02/06/25 Rx mcg (2,000 unit) capsule gabapentin 800 mg tablet 800 mg PO TID 30 days #90 tabs 01/21/25 02/06/25 Rx sennosides 8.6 mg tablet (Senna 8.6 mg PO DAILY PRN 02/06/25 02/06/25 History Lax) New Prescriptions to Start Prescriptions: Allergies Allergy/AdvReac Type Severity Reaction Status Date / Time clindamycin Allergy Severe Anaphylaxis Verified 02/06/25 11:30 Penicillins Allergy Severe Anaphylaxis Verified 02/06/25 11:30 iodine Allergy Rash Verified 02/06/25 11:30 Assessment and Plan *Assessment and plan (1) Cervical radiculopathy: Status: Acute Category: Medical Code(s): M54.12 - Radiculopathy, cervical region (2) Degenerative disc disease, cervical: Status: Acute Category: Medical Code(s): M50.30 - Other cervical disc degeneration, unspecified cervical region Plan Patient is experiencing worsening pain in their neck with radiating tingling and burning sensations into their bilateral upper extremities. Patient did have limited range of motion of her cervical spine with a positive Spurling's test. I did discuss with the patient that I do believe they would benefit from a cervical epidural steroid injection. Risk and benefits were discussed with patient and they would like to proceed forward with this plan of care. Patient has tried and failed conservative therapy including oral medications, heat and ice, topicals, at home stretching exercise for longer than 12 weeks that was physician guided. Patient has had chronic neck pain for longer than 6 months and has not had any cervical epidurals in the past. Patient has been seen by neurosurgery however she was not a surgical candidate for her neck. Patient will be scheduled for a HEMA C5-C6 under fluoroscopy. Patient denies any blood thinners. I will send in a 2-week dose of Celebrex. She denies any heart or kidney issues. Patient has been instructed to contact the clinic with any concerns before the next appointment. Dr. Hair has reviewed this note and agrees with this plan of care. This note was dictated using voice recognition software and make contain errors or omissions. All injections are used with Lidocaine, Bupivacaine and dexamethasone unless otherwise stated as a diagnostic in which it has no steroid. Occasionally urine drug screen is needed to verify patient's compliance with our office pain contract. This is ordered based off specific treatments related to chronic pain with the potential to abuse certain medications.
[2025-02-20 14:59] VITALS: BP 126/83; PULSE 76; RESP 14; O2SAT 95; BMI 28.3
== END 2025-02-20 23:59 | disposition home or self-care (01) ==
PROVIDERS: PCP Family Medicine; Visit Provider Nurse Practitioner Family
DX: M50.122 Cervical disc disorder at C5-C6 level with radiculopathy (principal)
CPT/HCPCS: 99212; G0463

== ENCOUNTER 2025-03-19 10:22 | Day surgery (SDC) | payer MEDICAID, SELFPAY ==
[2025-03-19 10:28] VITALS: BP 116/77; PULSE 73; RESP 18; O2SAT 95; BMI 28.3
[2025-03-19] MEDS: DEXAMETHASONE 10MG/ML 1ML VIAL 10 MG (10:51)
[2025-03-19 10:53] VITALS: BP 120/86; PULSE 70; PULSE 78; RESP 18; O2SAT 96; O2SAT 97
--- NOTE | 2025-03-19 10:57 | P.PCN_ITS ---
Procedure Date: 03/19/25 Time: 10:45 Anesthesiologist:: Cruz Escamilla CRNA Complications:: None Pre-procedure Diagnosis:: Degenerative disc cervical spine multilevels. Cervical radiculopathy. Post-procedure Diagnosis:: Same. Indications for Procedure:: Patient is a very pleasant 44-year-old female who comes our clinic today for cervical epidural steroid injection. Patient describes posterior cervical neck pain as well as bilateral arm radicular symptoms to the hand. She rates her rosemary n 7/10. Procedure Details:: Procedure:Cervical epidural steroid injection Informed consent was obtained and the risks and benefits of the procedure were explained to the patient. The patient was taken to the procedure room and noninvasive monitors placed, including noninvasive blood pressure cuff and pulse oximeter. The neck was prepped using Chloraprep as a cleansing solution. The C6- C7 interspace was viewed using fluroscopy. The skin and subcutaneous tissues were anesthetized using lidocaine 1.5% and a 25-gauge needle. After this an 18- gauge Touhy epidural needle was placed into the C6-C7 interspace under fluroscopy guidance and advanced using loss of resistance to air until the epidural space was encountered. After confirmation of needle placement in the epidural space using contrast dye, dexamethasone 10 mg ( 1 ML) was incrementally injected into the cervical epidural space.~ The patient tolerated the procedure well with no complications. The patient was observed in the Pain Clinic and then discharged home neurologically intact. Plan and Disposition:: Patient was discharged without incident.
[2025-03-19 11:02] VITALS: BP 119/74; PULSE 71; RESP 18; O2SAT 99
== END 2025-03-19 11:02 | disposition home or self-care (01) ==
PROVIDERS: PCP Family Medicine; Visit Provider Nurse Anesthetist, Certified Registered
DX: M50.123 Cervical disc disorder at C6-C7 level with radiculopathy (principal); G62.9 Polyneuropathy, unspecified; F17.200 Nicotine dependence, unspecified, uncomplicated; Z88.1 Allergy status to other antibiotic agents; Z88.0 Allergy status to penicillin; Z79.899 Other long term (current) drug therapy
CPT/HCPCS: 64479; J1100

== ENCOUNTER 2025-03-28 11:55 | Outpatient (CLI) | payer MEDICAID, SELFPAY ==
--- NOTE | 2025-03-28 11:57 | XR_ITS ---
FINAL REPORT CLINICAL HISTORY: Shortness of breath COMPARISON: None FINDINGS: CHEST 2 VIEWS No acute pulmonary density is evident. There is no evidence of effusion or other pleural disease. The mediastinum has a normal appearance. The cardiac silhouette is unremarkable. IMPRESSION: Unremarkable chest exam. Reviewed, Interpreted and Dictated by Marquis Mccullough MD Transcribed by Kaylin Esquivel Authenticated and [facility]
--- OUTSIDE RECORDS SUMMARY | 2025-03-28 11:58 | XMS_ITS | Clinical Summary ---
Author Organization [facility] Address [address] [place] [address] Care Team Providers Care Slicer Machine Operator Name Role Phone Provider, No Known Primary Care Provider Unavail able Allergies Active Allergy Reactions Criticality Noted Date Comments Sulfamethoxazole-Trimethoprim Rash Low 2016 Clindamycin/Lincomycin Rash Low 07/01/2017 Contrast Dye (Echo Or Unknown Ct/Mr) Arrhythmia Medium 07/01/2017 Penicillins Anaphylaxis High 07/01/2017 Medications buprenorphine-n aloxone (SUBOXONE) 8-2 MG per SL tablet Place 1 tablet under the tongue Daily. Active hydrochlorothia zide (MICROZIDE) 12.5 MG capsule Take 12.5 mg by mouth Daily. Active SENNA CO by Combination route. Active triamcinolone (KENALOG) 0.1 % ointment Apply topically to the appropriate area as directed 2 (Two) Times a Day. 30 tube 9 Active Active Problems No known active problems Social History Tobacco Use Types Packs/Day Years Used Date Smoking Tobacco: Every Day Cigarettes 1 21 Abuse Screen Answer Date Recorded Unsafe at Home or Work/School Not on file Feels Threatened by Someone? Not on file 05/2023 Does Anyone Keep You from Co ntacting Others or Doint Things Outside the Home? Not on file 06/13/2023 Physical Sign of Abuse Present Not on file 1 Housing Stability Answer Date Recorded Current Living Arrangements Not on file 05/2023 Potentially Unsafe Housing Conditions Not on lizz e 06/13/2023 Family and Community Support Answer Jose e Recorded Help with Day-to-Day Activities Not on file 06/13/2023 Lonely or Isolated Not on file 06/13/2023 Employment Answer Date Recorded Do you want help finding or keeping work or a dev b? Not on file 06/13/2023 Disabilities Answer Date Recorded Concentrating, Remembering, or Making Decisions Difficulty Not on file 06/13/2023 Doing Errands Independently Difficulty Not on fi le 06/13/2023 Education Answer Date Recorded Help with school or training? Not on file Preferred Language Not on file 06/13/2023 Comments No Sex and Gender Information Value Date Recorded Sex Assigned at Not on file Legal Sex Female 12:09 PM EDT Gender Identity Not on file Sexual Orientation Not on file Last Filed Vital Signs Vital Sign Reading Time Taken Comments Blood Pressure 108/66 04/27/2019 3:45 PM EDT Pulse 70 04/27/2019 3:45 PM EDT Temperature 36.9 C (98.4 F) 04/27/2019 3:45 PM EDT Respiratory Rate 14 04/27/2019 3:45 PM EDT Oxygen Saturation 99% 04/27/2019 3:45 PM EDT Inhaled Oxygen Concentration - - Weight 60.8 kg (134 lb) 04/27/2019 3:45 PM EDT Height 165.1 cm (5' 5 ) 04/27/2019 3:45 PM EDT Body Mass Index 22.3 04/27/2019 3:45 PM EDT Plan of Treatment Health Maintenance Due Date Last Done Comments Annual Gynecologic Pelvic an d Breast Exam 1979 TDAP/TD VACCINES (1 - Tdap) 1998 ANNUAL PHYSICAL 07/01/2017 HEPATITIS C SCREENING 07/01/2017 MAMMOGRAM 2019 COVID-19 Vaccine (2023-2 5 season) 2024 COLOGUARD 2024 COLON CANCER SCREENING 5 YEA R SIGMOIDOSCOPY 2024 COLONOSCOPY [address]24 [address] CAN[address]ER SCREENING 2024 CT COLONOGRAPHY 2024 FECAL OCCULT BLOOD TEST 2024 FIT Testing (1 year) 2024 INFLUENZA VACCINE 06/05/2025 Pneumococcal Vaccine 0-49 Aged Out No longer eligible based on patient's age to complete this topic Insurance Member Subscriber Plan / Payer (Ef fective 2017-Present) Name:Joanna Smallwood Relation to Subscriber:Self Name:Cl Joanna Payer ID:[id number] Group ID:[id number] Type:Not on file Address: [address] [id number] Care Teams Slicer Machine Operator Relationship Specialty Start Date End Date Provider, [place] [address] PCP - General 07/01/17
--- OUTSIDE RECORDS SUMMARY | 2025-03-28 11:58 | XMS_ITS | Referral Summary ---
Author Organization [facility] ([place], [place], [place], [place]) Address [address] [place] [address] Care Team Providers Care Information Technology Advisor Name Role Phone Dave Stephen MD Primary Care Provider [phone] Allergies Active Allergy Reactions Criticality Noted Date [...] drink = 0.6 oz pur e alcohol) Food Insecurity Answer Date Recorded Food run [...] Date Bert rded Speak language other than South African at home Not on file 09/23/2023 Want help with school or training Not on file 09/23/2023 Substance Use Answer Date Recorded Used [...] Plan of Treatment Not on file Insurance Care Teams Information Technology Advisor Relationship Specialty Start Date End Date Dave Stephen MD [address] [place] [address] PCP - General Family Medicine 04/07/23
--- OUTSIDE RECORDS SUMMARY | 2025-03-28 11:58 | XMS_ITS | Clinical Summary ---
Author Organization [facility] ([place], [place], [place], [place]) Address [address] [place] [address] Care Team Providers Care Human Projectile Name Role Phone Dave Stephen MD Primary Care Provider [phone] Allergies Active Allergy Reactions Criticality Noted Date [...] Date Bert rded Speak language other than Gabonese at home Not on file 09/23/2023 Want [...] Counseling and Screening (12+) 04/0704/07/2023 COVID-19 VACCINE (1 - 2023-25 season) 2024 Lipid Panel 2024 Influenza Vaccine (#1) 2025 Insurance [facility] Care Teams Human Projectile Relationship Specialty Start Date End Date Dave Stephen MD [address] [place] [address] PCP - General Family Medicine 04/07/23
== END 2025-03-28 23:59 | disposition home or self-care (01) ==
LOC: LAB 11:56
PROVIDERS: PCP Family Medicine; Visit Provider Family Medicine
DX: M25.50 Pain in unspecified joint (principal); R53.83 Other fatigue; Z87.39 Personal history of other diseases of the musculoskeletal system and connective tissue; R23.9 Unspecified skin changes; R60.0 Localized edema
CPT/HCPCS: 71046

== ENCOUNTER 2025-04-03 14:37 | Outpatient (POV) | payer MEDICAID, SELFPAY ==
--- OUTSIDE RECORDS SUMMARY | 2025-04-03 14:39 | XMS_ITS | Clinical Summary ---
Author Organization [facility] ([place], [place], [place], [place]) Address [address] [place] [address] Care Team Providers Care Lease Out Man Name Role Phone Dave Stephen MD Primary Care Provider [phone] Allergies Active Allergy Reactions Criticality Noted Date [...] Date Bert rded Speak language other than Latvian at home Not on file 09/23/2023 Want [...] 2024 Influenza Vaccine (#1) 2025 Insurance [facility] Care Teams Lease Out Man Relationship Specialty Start Date End Date Dave Stephen MD [address] [place] [address] PCP - General Family Medicine 04/07/23
--- OUTSIDE RECORDS SUMMARY | 2025-04-03 14:39 | XMS_ITS | Referral Summary ---
Author Organization [employer] ([place], [place], [place], [place]) Address [address] [place] [address] Care Team Providers Care Operation Agent Name Role Phone Dave Stephen MD Primary Care Provider [phone] Allergies Active Allergy Reactions Criticality Noted Date [...] Treatment Not on file Insurance Care Teams Operation Agent Relationship Specialty Start Date End Date Dave Stephen MD [address] [place] [address] PCP - General Family Medicine 04/07/23
--- OUTSIDE RECORDS SUMMARY | 2025-04-03 14:39 | XMS_ITS | Clinical Summary ---
[facility] Address [address] [place] [address] Care Team Providers Care Internet Cafe Manager Name Role Phone Provider, No Known Primary [...] patient's age to complete this topic Insurance [id number] [id number] [facility] [place] [place] Sub[place] Plan / Payer (Ef fective 2017-Present) Name:Joanna Smallwood Relation to Subscriber:Self Name:Cl Joanna Payer ID:[id number] Group ID:[id number] Type:Not on file Address: [address] [id number] Care Teams Internet Cafe Manager Relationship Specialty Start Date End Date Provider, [place] [address] PCP - General 07/01/17
[2025-04-03 14:46] VITALS: BP 128/84; PULSE 73; RESP 14; O2SAT 95; BMI 29.4
--- NOTE | 2025-04-03 15:11 | A.OFFVIS_ITS ---
[facility] Disclaimer: The information contained in this section may have been updated after the patient was seen, as this information can be updated by other users. Medical History Abnormal mammogram of left breast Lesion of lumbar spine Breast cancer screening by mammogram Dysphagia Edema of both lower extremities SOB (shortness of breath) Abnormal electrocardiogram [ECG] [EKG] Neuropathy Foot pain Surgical History History of hysterectomy Family History Grandmother Cancer breast Social History Smoking Status: Current every day smoker smoking status start date: 1 pack per day years smoked: 25 alcohol intake: never substance use type: denies use current occupational status: other Travel in the last 8 weeks?: None housing: house marital status: education level: college service: No PM Subjective & Objective Subjective Subjective:: Patient is a pleasant 44-year-old female who presents today for follow-up of her cervical epidural steroid injection C6-C7 on 03/19/2025. Today she rates her pain a 7 out of 10 overall. She does state that she did not notice any improvement with this injection. She states that she almost felt like it made her symptoms worse and has had a lot more headaches here lately. Patient does also have carpal tunnel syndrome and is unsure how much of this may be overshadowing the injection. Patient did see the orthopedic provider here at [facility] who was not necessarily recommending the carpal tunnel surgery as he was unsure how much was coming from that versus her neck. Patient is asking for additional information of what we think would be beneficial. Patient denies any new falls or injuries. She does state that she is having quite a bit of leg numbness that does radiate down all the entire backside of her legs to her feet. Patient does state this pain is interfering with her ability perform activities of daily living such as cooking and cleaning. Patient has continued conservative treatment with no additional relief. Her Jass has been reviewed and is appropriate. Review of Systems: General: No recent weight changes, no fever, no sleep disturbances Respiratory: No cough, no shortness of air, no recurring pulmonary infections Cardiovascular/peripheral vascular: No chest pain, no palpitations, no edema, no shortness of breath Gastrointestinal: No new onset incontinence, normal bowel movements reported Genitourinary: No new onset incontinence Musculoskeletal: Neck pain, headache, hand numbness, leg numbness tingling bilaterally Psychiatric: [Normal mood/affect] Neurological: [Denies weakness in extremities], [denies balance issues] Pain at rest (0-10 scale): 7 Objective Objective:: Physical Exam: General: Alert and oriented x3, no acute distress, pleasant and cooperative Lungs: Respirations even and unlabored, symmetrical chest expansion Eyes: PERRL Musculoskeletal: Flexion and extension of lumbar [spine] somewhat guarded secondary to pain, [antalgic gait noted] positive leg raise Neurological: Speech clear, no gross sensory deficit Has patient had previous pain injection?: Yes Percent improvement in pain since last injection: Minimal Conservative treatment options previously tried: Home exercise plan Length of treatment: Longer than 12 weeks Meds Home Medications and Allergies Home Medications ?Medication ?Instructions ?Recorded ?Confirmed ?Type buprenorphine 8 mg-naloxone 2 mg 3 film sublingual MIKE LY 01/19/24 04/03/25 History sublingual film (Suboxone) lidocaine 5 % topical patch See Rx Instructions .Route 06/13/24 04/03/25 Rx .COMPLEX #30 patches diclofenac sodium 1 % topical gel See Rx Instructions .Route 07/11/24 04/03/25 Rx .COMPLEX #100 grams furosemide 20 mg tablet 40 mg PO Q OTHER DAY 4 04/03/25 History nicotine (polacrilex) 4 mg buccal 4 mg buccal Q8H PRN nicotine 10/01/24 04/03/25 Rx mini lozenge cravings #81 ea cholecalciferol (vitamin D3) 50 50 mcg PO DAILY #90 ca ps 01/11/25 04/03/25 Rx mcg (2,000 unit) capsule gabapentin 800 mg tablet 800 mg PO TID 30 days #90 ta bs 01/21/25 04/03/25 Rx sennosides 8.6 mg tablet (Senna 8.6 mg PO DAILY PRN Co nstipation 02/06/25 04/03/25 History Lax) celecoxib 200 mg capsule (Celebrex) 200 mg PO DAILY #1 4 caps 02/20/25 04/03/25 Rx New Prescriptions to Start Prescriptions: Allergies Allergy/AdvReac Type Severity Reaction Status Date / Time clindamycin Allergy Severe Anaphylaxis Verified 03/28/25 10:28 Penicillins Allergy Severe Anaphylaxis Verified 03/28/25 10:28 iodine Allergy Rash Verified 03/28/25 10:28 Assessment and Plan *Assessment and plan (1) Lumbar radiculopathy, chronic: Status: Acute Category: Medical Code(s): M54.16 - Radiculopathy, lumbar region (2) DDD (degenerative disc disease): Status: Acute Qualifiers: Spinal region: lumbosacral Disc-related pain type: discogenic back pain and lower extremity pain Qualified Code(s): M51.372 - Other intervertebral disc degeneration, lumbosacral region with discogenic back pain and lower extremity pain Category: Medical (3) Cervical radiculopathy: Status: Acute Category: Medical Code(s): M54.12 - Radiculopathy, cervical region (4) Right carpal tunnel syndrome: Status: Acute Category: Medical Code(s): G56.01 - Carpal tunnel syndrome, right upper limb Plan Patient is experiencing worsening pain in her low back with numbness and tingling into her lower extremities. Patient did have limited range of motion of her lumbar spine with a positive leg raise. I did discuss with patient that I do believe they would benefit from a lumbar epidural steroid injection. Risk and benefits were discussed with patient and the patient would like to proceed forward with this plan of care. Patient is not on any blood thinners. Patient has tried and failed conservative therapy including oral medications, heat and ice, topicals and continued at home stretching exercise for longer than 12 weeks between injections. Patient has had chronic back pain for longer than 6 months. Patient did previously have a lumbar epidural of L3-L4 however did not get long-term relief with this injection. I did discuss with the patient the way her pain does radiate down into her legs does follow the L5-S1 dermatome. I did recommend that we try at this level. Patient agrees with this plan of care. We will schedule the patient for an LESI L5-S1 under fluoroscopy. I did also discuss with the patient regarding her neck to try Excedrin Migraine and see if this does help with her headaches. We did discuss the possibility of sending another referral to orthopedics due to her history of carpal tunnel syndrome. Patient does state that she ended up having the EMG testing and it did show carpal tunnel syndrome. We will send referral to Dr. Daryn Kyle for a second opinion regarding surgical intervention such as carpal tunnel release. We will follow-up in future regarding this. We did also discuss with her chronic neck and radicular symptoms that in future she may benefit from a spinal cord stimulator trial. We did review over some of the risk and benefits. We will follow-up in future regarding this. Patient agrees with this plan of care. Patient has been instructed to contact the clinic with any concerns before the next appointment. Dr. Hair has reviewed this note and agrees with this plan of care. This note was dictated using voice recognition software and make contain errors or omissions. All injections are used with Lidocaine, Bupivacaine and dexamethasone. Occasionally urine drug screen is needed to verify patient's compliance with our office pain contract. This is ordered based off specific treatments related to chronic pain with the potential to abuse certain medications.
== END 2025-04-03 23:59 | disposition home or self-care (01) ==
LOC: SC.PAIN 14:38
PROVIDERS: PCP Family Medicine; Visit Provider Nurse Practitioner Family
DX: M51.17 Intervertebral disc disorders with radiculopathy, lumbosacral region (principal); G56.01 Carpal tunnel syndrome, right upper limb
CPT/HCPCS: 99212; G0463

== ENCOUNTER 2025-04-08 09:42 | Outpatient (CLI) | payer MEDICAID, SELFPAY ==
--- OUTSIDE RECORDS SUMMARY | 2025-04-08 09:45 | XMS_ITS | Clinical Summary ---
Author Organization [facility] Address [address] [place] [address] Care Team Providers Care Freight Brake Operator Name Role Phone Provider, No Known [...] ID:[id number] Group ID:[id number] Type:Not on file Address: [address] [id number] Care Teams Freight Brake Operator Relationship Specialty Start Date End Date Provider, [place] [address] PCP - General 07/01/17
--- OUTSIDE RECORDS SUMMARY | 2025-04-08 09:45 | XMS_ITS | Clinical Summary ---
Author Organization [facility] ([place], [place], [place], [place]) Address [address] [place] [address] Care Team Providers Care Soda Worker Name Role Phone Dave Stephen MD Primary Care Provider [phone] Allergies Active Allergy Reactions Criticality Noted Date [...] Date Bert rded Speak language other than Nicaraguan at home Not on file 09/23/2023 Want [...] 2024 Influenza Vaccine (#1) 2025 Insurance [employer] [facility] Care Teams Soda Worker Relationship Specialty Start Date End Date Dave Stephen MD [address] [place] [address] PCP - General Family Medicine 04/07/23
--- OUTSIDE RECORDS SUMMARY | 2025-04-08 09:45 | XMS_ITS | Referral Summary ---
Author Organization [facility] ([place], [place], [place], [place]) Address [address] [place] [address] Care Team Providers Care Landfill Attendant Name Role Phone Dave Stephen MD Primary Care Provider [phone] Allergies Active Allergy Reactions Criticality Noted Date [...] Date Bert rded Speak language other than Taiwanese at home Not on file 09/23/2023 Want [...] Treatment Not on file Insurance Care Teams Landfill Attendant Relationship Specialty Start Date End Date Dave Stephen MD [address] [place] [address] PCP - General Family Medicine 04/07/23
[2025-04-08 09:51] LABS: dRVVT Confirm ND
[2025-04-08 10:08] LABS: Hematocrit 46.0 % (37.0-47.0); Hemoglobin 15.4 g/dL (12.2-16.2); Immature Granulocytes % 0.8 %; Mean Corpuscular HGB Conc 33.5 g/dL (31.8-35.4); Mean Corpuscular Hemoglobin 31.0 pg (27.0-31.2); Mean Corpuscular Volume 92.7 fl (81-99); Nucleated Red Blood Cells % 0 %; Platelet Count 271 K/mm3 (142-424); Red Blood Count 4.96 M/mm3 (4.20-5.40); Red Cell Distribution Width-SD 45.0 fL; White Blood Count 12.8 K/mm3 (4.8-10.8)
[2025-04-08 10:16] LABS: INR 0.96 (0.9-1.1); Prothrombin Time 10.7 seconds (10.1-12.5)
[2025-04-08 10:47] LABS: C-Reactive Protein 10.0 mg/L (0-4)
[2025-04-08 10:50] LABS: NT Pro Brain Natriuretic Pep. < 20.0 pg/mL (0-125)
[2025-04-08 11:07] LABS: Alanine Aminotransferase 76 U/L (12-78); Albumin Level 4.1 g/dl (3.5-5.0); Albumin/Globulin Ratio 1.9 (1.1-1.8); Alkaline Phosphatase 96 U/L (38-126); Anion Gap 7.0 mEq/L (5-15); Aspartate Amino Transferase 45 U/L (14-36); Bilirubin,Total 0.3 mg/dl (0.2-1.3); Blood Urea Nitrogen 13 mg/dl (7-17); Calcium 9.3 mg/dl (8.4-10.2); Carbon Dioxide 29 mmol/L (22.0-30.0); Chloride 107 mmol/L (98-107); Creatinine,Serum 0.70 mg/dl (0.52-1.04); Estimated Glomerular Filt Rate 90 ml/min (>60); GFR (African American) 109 ML/MIN (>60); Globulin 2.2 g/dL (1.3-3.2); Glucose 133 mg/dl (74-100); Potassium 4.0 mmoL/L (3.5-5.1); Sodium 139 mmol/L (136-145); Total Protein,Serum 6.3 g/dl (6.3-8.2)
[2025-04-08 14:06] LABS: Uric Acid 7.0 mg/dl (2.5-6.2)
[2025-04-09 08:12] LABS: RA Latex Turbid. <10.0 IU/mL (<14.0)
[2025-04-09 14:12] LABS: Antinuclear Antibodies, IFA Negative (.)
[2025-04-11 03:38] LABS: ALT (SGPT) P5P 70 IU/L (0-40); AST (SGOT) P5P 40 IU/L (0-40); Alpha 2-Macroglobulins, Qn 209 mg/dL (110-276); Bilirubin, Total 0.2 mg/dL (0.0-1.2); Cholesterol, Total 174 mg/dL (100-199); GGT 61 IU/L (0-60); Glucose 128 mg/dL (70-99); Triglycerides 239 mg/dL (0-149)
[2025-04-12 18:10] LABS: PTT-LA 33.9 sec (0.0-43.5)
== END 2025-04-08 23:59 | disposition home or self-care (01) ==
LOC: LAB 09:42
PROVIDERS: Nurse Practitioner Family; PCP Family Medicine; Visit Provider Family Medicine
DX: M25.50 Pain in unspecified joint (principal); R74.8 Abnormal levels of other serum enzymes; R23.9 Unspecified skin changes; R60.0 Localized edema; R53.83 Other fatigue; R63.5 Abnormal weight gain; Z00.00 Encounter for general adult medical examination without abnormal findings; Z87.39 Personal history of other diseases of the musculoskeletal system and connective tissue; R68.81 Early satiety
CPT/HCPCS: 36415; 80053; 81596; 82024; 82088; 82172; 82247; 82465; 82533; 82947; 82977; 83521; 83880; 84450; 84460; 84478; 84550; 85025; 85610; 85613; 85651; 85732; 86038; 86140; 86225; 86235; 86431

== ENCOUNTER 2025-04-19 09:44 | Outpatient (CLI) | payer MEDICAID, SELFPAY ==
--- OUTSIDE RECORDS SUMMARY | 2025-04-19 09:45 | XMS_ITS | Clinical Summary ---
[facility] Address [address] [place] [address] Care Team Providers Care Tubing Mill Operator Name Role Phone Provider, No Known [...] ID:[id number] Group ID:[id number] Type:Not on file Address: [address] [id number] Care Teams Tubing Mill Operator Relationship Specialty Start Date End Date Provider, [place] [address] PCP - General 07/01/17
--- OUTSIDE RECORDS SUMMARY | 2025-04-19 09:46 | XMS_ITS | Referral Summary ---
Author Organization [employer] ([place], [place], [place], [place]) Address [address] [place] [address] Care Team Providers Care Lead Presser Name Role Phone Dave Stephen MD Primary Care Provider [phone] Allergies Active Allergy Reactions Criticality Noted Date [...] Bert rded Speak language other than [place] Sudanese at home Not on file 09/23/2023 Want [...] Treatment Not on file Insurance Care Teams Lead Presser Relationship Specialty Start Date End Date Dave Stephen MD [address] [place] [address] PCP - General Family Medicine 04/07/23
--- OUTSIDE RECORDS SUMMARY | 2025-04-19 09:46 | XMS_ITS | Clinical Summary ---
Author Organization [employer] ([place], [place], [place], [place]) Address [address] [place] [address] Care Team Providers Care Editor & Co Founder Name Role Phone Dave Stephen MD Primary Care Provider [phone] Allergies Active Allergy Reactions Criticality Noted Date [...] Date Bert rded Speak language other than Italian at home Not on file 09/23/2023 Want [...] [facility] Care Teams Editor & Co Founder Relationship Specialty Start Date End Date Dave Stephen MD [address] [place] [address] PCP - General Family Medicine 04/07/23
--- NOTE | 2025-04-19 10:00 | US_ITS ---
FINAL REPORT CLINICAL HISTORY: PELAYO FINDINGS: ULTRASOUND ABDOMEN There are fatty changes to the liver without focal hepatic mass. Spleen has a normal sonographic appearance. Patient is status postcholecystectomy. The common duct measures 7 mm. Kidneys show no evidence of mass or obstruction. Pancreas is not well visualized. IVC and aorta are grossly unremarkable. There is no obvious fluid collection. IMPRESSION: Fatty liver. Status postcholecystectomy. Reviewed, Interpreted and Dictated by Marquis Mccullough MD Transcribed by Araceli To Authenticated and [facility]
== END 2025-04-19 23:59 | disposition home or self-care (01) ==
LOC: RAD 09:44
PROVIDERS: PCP Family Medicine; Visit Provider Family Medicine
DX: K75.81 Nonalcoholic steatohepatitis (NASH) (principal); Z90.49 Acquired absence of other specified parts of digestive tract
CPT/HCPCS: 76700

== ENCOUNTER 2025-05-16 09:04 | Day surgery (SDC) | payer MEDICAID, SELFPAY ==
--- NOTE | 2025-05-10 14:13 | SUR.PREOP ---
left detailed message with pt went over: arrival time, need for truck driver rubbish collector, and NPO instructions. gave callback number
--- NOTE | 2025-05-14 17:23 | EXP.HP ---
History of Present Illness *Admission Date: 05/16/25 *History of present illness: Mrs. Smallwood is a 44-year-old female who is here for diagnostic EGD. The patient does have bloating, constipation and dyspepsia. She also has a history of Crohn's disease. She does report that her last colonoscopy was 4 years ago ([facility]). Her daughter and mother were diagnosed with Crohn's disease. The examination is deemed medically necessary for diagnostic colonoscopy. The patient has been seen, interviewed and examined prior to the procedure by both myself and the anesthesia provider. [facility] Disclaimer: The information contained in this section may have been updated after the patient was seen, as this information can be updated by other users. Medical History Lesion of bone of lumbosacral spine Elevated blood uric acid level Abnormal mammogram of left breast Lesion of lumbar spine Breast cancer screening by mammogram Dysphagia Edema of both lower extremities SOB (shortness of breath) Abnormal electrocardiogram [ECG] [EKG] Neuropathy Foot pain Surgical History History of hysterectomy Family History Grandmother Cancer breast Social History Smoking Status: Current every day smoker smoking status start date: 1 pack per day years smoked: 25 alcohol intake: never substance use type: denies use current occupational status: other Travel in the last 8 weeks?: None housing: house marital status: education level: college service: No caffeine: Yes Have you lived/traveled outside US in past 30 days?: No Contact w/someone who lives/traveled outside US past 30 days?: No Exposure to someone with infectious disease in past 14 days?: No Do you have a fever (greater than 100.4 F or 38 C)?: No Have you tested positive for COVID-19?: No Exposed to someone with COVID-19 in past 14 days?: No Do you have a sore throat?: No Do you have a cough?: No Do you have any weakness?: No Do you have any diarrhea?: No Are you experiencing any unusual bleeding?: No Do you have any muscle aches/pain?: No Do you have any abdominal pain?: No Are you experiencing loss of taste or smell?: No Other Medical History Have you received the Flu Vaccine for this season: No Have you received the Pneumonia Vaccine: No Review of Systems Review of Systems Review of systems (narrative): Negative *Cardiovascular Comments: Negative *Gastrointestinal Comments: Negative *Genitourinary Comments: Negative *Musculoskeletal Comments: Negative *Neurologic Comments: Negative Meds Home Medications and Allergies Home Medications ?Medication ?Instructions ?Recorded ?Confirmed ?Type buprenorphine 8 mg-naloxone 2 mg 3 film sublingual DAILY 01/19/24 05/16/25 History sublingual film (Suboxone) lidocaine 5 % topical patch See Rx Instructions .Route 06/13/24 05/16/25 Rx .COMPLEX #30 patches diclofenac sodium 1 % topical gel See Rx Instructions .Route 07/11/24 05/16/25 Rx .COMPLEX #100 grams furosemide 20 mg tablet 40 mg PO Q OTHER DAY 07/24/24 05/16/25 History nicotine (polacrilex) 4 mg buccal 4 mg buccal Q8H PRN nicotine 10/01/24 05/16/25 Rx mini lozenge cravings #81 ea cholecalciferol (vitamin D3) 50 50 mcg PO DAILY #90 caps 01/11/25 05/16/25 Rx mcg (2,000 unit) capsule sennosides 8.6 mg tablet (Senna 8.6 mg PO DAILY PRN Constipation 02/06/25 05/16/25 History Lax) allopurinol 100 mg tablet 100 mg PO DAILY #30 tabs 04/15/25 05/16/25 Rx spironolactone 25 mg tablet 25 mg PO DAILY #30 tabs 04/15/25 05/16/25 Rx semaglutide 0.25 mg or 0.5 mg (2 0.25 mg (0.368 mL) SQ WEEKLY 05/12/25 05/16/25 Rx mg/3 mL) subcutaneous pen injector pre-diabetes, non-alcoholic (Ozempic) steatohepatitis #3 mL gabapentin 800 mg tablet 800 mg PO TID 30 days #90 tabs 05/14/25 05/16/25 Rx New Prescriptions to Start Prescriptions: Allergies Allergy/AdvReac Type Severity Reaction Status Date / Time clindamycin Allergy Severe Anaphylaxis Verified 05/09/25 10:25 Penicillins Allergy Severe Anaphylaxis Verified 05/09/25 10:25 iodine Allergy Rash Verified 05/09/25 10:25 Exam *Routine HEENT Exam Head: Present normocephalic Eye: Present EOMI and PERRL ENT: Present mucous membranes moist *Routine Neck Exam Neck: Present supple *Routine Respiratory Exam Respiratory: Present CTA bilaterally *Routine Cardiovascular Exam Cardiovascular: Present RRR *Routine Abdominal Exam Abdominal: Present soft and normoactive bowel sounds; Absent tenderness *Routine Rectal Exam Rectal:: deferred *Routine Genitalia Exam Genitalia:: deferred *Routine Extremities Exam Extremities: Absent cyanosis, clubbing or edema *Routine Skin Exam Skin: Present warm; Absent rash *Routine Neurological Exam Neurological: Present alert and oriented X3 Assessment and Plan *Assessment and plan (1) Bloating: Status: Acute Category: Medical Code(s): R14.0 - Abdominal distension (gaseous) (2) Chronic constipation: Status: Acute Category: Medical Code(s): K59.09 - Other constipation (3) Nausea: Status: Acute Category: Medical Code(s): R11.0 - Nausea (4) History of Crohn's disease: Status: Acute Category: Medical Code(s): Z87.19 - Personal history of other diseases of the digestive system Plan A/P: 1. Bloating, constipation and prior history of Crohn's disease is the preprocedural diagnosis. The patient will be anesthetized/sedated using MAC sedation. The patient has been seen and examined. Cardiac and lung assessment prior to the examination is stable. Proceed with planned diagnostic colonoscopy.
[2025-05-16 09:16] VITALS: BP 126/82; PULSE 62; RESP 18; TEMP 36.3; O2SAT 96; BMI 28.3
[2025-05-16] MEDS: LACTATED RINGERS 1000ML 1,000 ML 50 ML IV (09:20)
--- NOTE | 2025-05-16 09:35 | HMH.PROCNOTE ---
[facility] Procedure Note Date: 05/16/25 Time: 10:23 Procedure Note:: Colonoscopy Procedure Report: Colonoscopy with cold snare polypectomy Endoscopist: Zach Bowie II, MD Referring physician: Joseluis Holcomb MD Date of Procedure: May 16, 2025 Equipment: Olympus [id number] adult colonoscope Sedation: MAC sedation Indication: Mrs. Smallwood is a 44-year-old female who is here for diagnostic colonoscopy. The patient does have bloating, constipation and dyspepsia. The patient does report lower abdominal discomfort. She has straining and incomplete defecation with hard stools. She states that since her hysterectomy she does not even get the urge to have a bowel movement. She does report that her last colonoscopy was 4 years ago ([facility]). The patient does state that she has Crohn's disease. Her daughter and mother were diagnosed with Crohn's disease. She does get some intermittent spotting of blood. The examination is deemed medically necessary for diagnostic colonoscopy. Procedure: Prior to the procedure, a history and physical exam was performed, and patient's medications and allergies were reviewed. The risks, benefits and alternatives of the sedation and procedure were discussed with the patient. All questions were answered and informed consent was obtained. The patient was brought to the procedure room. Patient identification and proposed procedure were verified by the physician and the nurse. The patient was placed in a left lateral decubitus position and the scope was passed under direct vision. Throughout the procedure, the patient's blood pressure, pulse, and oxygen saturations were monitored continuously. The colonoscopy was accomplished without difficulty. The patient tolerated the procedure well. Findings: On digital rectal examination there was normal rectal tone. There were no external hemorrhoids. The colonoscope was introduced through the anal canal to the rectum and advanced to the cecum. The ileocecal valve and appendiceal orifice were identified. The scope was advanced a short distance into the ileum which appeared grossly normal. The scope was then withdrawn into the colon. The preparation was fair to poor throughout with a lot of residue and yellow liquid stool. There was a diminutive 4 mm polyp in the sigmoid colon removed via cold snare polypectomy. The remainder of the visualized cecum, ascending, transverse, descending, sigmoid and rectum were grossly normal. There was no evidence of colitis or Crohn's disease and there were no other mucosal abnormalities identified. Upon retroflexion within the rectum there were grade 1-2 internal hemorrhoids. The preparation was fair to poor throughout with [place] Preparation Score of 5 out of 9. The cecal time was 10 minutes. Impression: 1. Diminutive sigmoid polyp 2. Normal colon and terminal ileum with no evidence of Crohn's disease Plan: The patient does have chronic constipation and should be on maintenance constipation therapy/bowel habit training. I would consider Movantik and/or Linzess. I will follow-up the polyp histology. Based upon her bowel preparation and polyp, would recommend repeat surveillance at 5 years.
--- NOTE | 2025-05-16 09:43 | EXP.ANES.CKL ---
[facility] Disclaimer: The information contained in this section may have been updated after the patient was seen, as this information can be updated by other users. Medical History Lesion of bone of lumbosacral spine Elevated blood uric acid level Abnormal mammogram of left breast Lesion of lumbar spine Breast cancer screening by mammogram Dysphagia Edema of both lower extremities SOB (shortness of breath) Abnormal electrocardiogram [ECG] [EKG] Neuropathy Foot pain Surgical History History of hysterectomy Family History Grandmother Cancer breast Social History Smoking Status: Current every day smoker smoking status start date: 1 pack per day years smoked: 25 alcohol intake: never substance use type: denies use current occupational status: other Travel in the last 8 weeks?: None housing: house marital status: education level: college service: No caffeine: Yes Have you lived/traveled outside US in past 30 days?: No Contact w/someone who lives/traveled outside US past 30 days?: No Exposure to someone with infectious disease in past 14 days?: No Do you have a fever (greater than 100.4 F or 38 C)?: No Have you tested positive for COVID-19?: No Exposed to someone with COVID-19 in past 14 days?: No Do you have a sore throat?: No Do you have a cough?: No Do you have any weakness?: No Do you have any diarrhea?: No Are you experiencing any unusual bleeding?: No Do you have any muscle aches/pain?: No Do you have any abdominal pain?: No Are you experiencing loss of taste or smell?: No [facility] Anesthesia Checklist Patient Identification Patient Identification: Arm Band and Verbal (Name & ) Structural Data Admitted From: Home Planned Operative Procedure/s: Colonoscopy Consent for Planned Operative Procedure(s) Verified: Yes Verified Documents: Surgical Consent NPO Status Verified Time NPO: 00:00 Chart Verification Results Verified: None Additional verifications Anesthesia Reactions: Yes Hx Blood Transfusions: No Blood Transfusion Reaction: Yes Airway Assessment Mallampati Score:: Class II C-Spine Mobility Assessed: Yes (Peripheral neuropathy, tingling down upper/lower bilateral extremities) TMJ Mobility Assessed: Yes Dentition: Edentulous Neurological Assessment Level of Consciousness: Awake, Alert and Appropriate Hx Seizures: No Numbness or tingling in extremities: Yes Anesthesia Plan Anesthesia Risk discussed: Yes Anesthesia Plan: Verified ASA Class: II Anesthesia Type: MAC
--- NOTE | 2025-05-16 09:45 | EXP.ANES.CKL ---
[facility] Disclaimer: The information contained in this section may have been updated after the patient was seen, as this information can be updated by other users. Medical History (Updated 05/16/25 @ 11:13 by Zach Bowie II, MD) Lesion of bone of lumbosacral spine Elevated blood uric acid level Abnormal mammogram of left breast Lesion of lumbar spine Breast cancer screening by mammogram Dysphagia Edema of both lower extremities SOB (shortness of breath) Abnormal electrocardiogram [ECG] [EKG] Neuropathy Foot pain Surgical History History of hysterectomy Family History Grandmother Cancer breast Social History Smoking Status: Current every day smoker smoking status start date: 1 pack per day years smoked: 25 alcohol intake: never substance use type: denies use current occupational status: other Travel in the last 8 weeks?: None housing: house marital status: education level: college service: No caffeine: Yes [facility] Anesthesia Checklist Structural Data Planned Operative Procedure/s: EGD Additional verifications Anesthesia Reactions: Yes Hx Blood Transfusions: No Blood Transfusion Reaction: Yes Anesthesia Plan Anesthesia Type: MAC
[2025-05-16 10:27] VITALS: BP 96/69; PULSE 64; RESP 18; TEMP 36.3; O2SAT 93
[2025-05-16 10:37] VITALS: BP 93/59; PULSE 60; RESP 18; TEMP 36.3; O2SAT 95
[2025-05-16 10:47] VITALS: BP 108/52; PULSE 61; RESP 18; TEMP 36.3; O2SAT 96
[2025-05-16 10:57] VITALS: BP 121/71; PULSE 59; RESP 18; TEMP 36.3; O2SAT 95
== END 2025-05-16 10:57 | disposition home or self-care (01) ==
PROVIDERS: PCP Family Medicine; Visit Provider Internal Medicine Gastroenterology
PROC: 0DJD8ZZ Inspection of Lower Intestinal Tract, Via Natural or Artificial Opening Endoscopic (ICD-10-PCS; CPT 45378; principal; 2025-05-16 09:30)
DX: K63.5 Polyp of colon (principal); K64.0 First degree hemorrhoids; K64.1 Second degree hemorrhoids; K59.09 Other constipation; R13.10 Dysphagia, unspecified; R60.0 Localized edema; F17.210 Nicotine dependence, cigarettes, uncomplicated; G62.9 Polyneuropathy, unspecified; K50.90 Crohn's disease, unspecified, without complications; Z79.899 Other long term (current) drug therapy; Z79.85 Long-term (current) use of injectable non-insulin antidiabetic drugs; Z88.1 Allergy status to other antibiotic agents; Z88.0 Allergy status to penicillin; Z88.8 Allergy status to other drugs, medicaments and biological substances; Z90.710 Acquired absence of both cervix and uterus; Z87.19 Personal history of other diseases of the digestive system
CPT/HCPCS: 45385; J2003; J2704; J7120

== ENCOUNTER 2025-05-28 08:49 | Outpatient (CLI) | payer MEDICAID, SELFPAY ==
--- NOTE | 2025-05-28 09:00 | MR_ITS ---
FINAL REPORT TECHNIQUE: Multiplanar and multisequence imaging of the lumbar spine was obtained without contrast. CLINICAL HISTORY: follow-up of lesion on L2. BILATERAL LOW BACK PAIN. BILATERAL LEG PAIN, NUMBNESS AND TINGLING. WORSE ON RIGHT SIDE COMPARISON: 04/20/2024 FINDINGS: There is normal alignment of the lumbar vertebral bodies. Vertebral body height is preserved. The spinal cord ends at the level of L2. There is a T1 and T2 hypointense lesion in the posterior aspect of L2 which is unchanged. There is also a T1 and T2 hyperintense lesion in the L3 vertebral body which is likely a hemangioma. Marrow signal is otherwise normal. L1-2: Annular disc bulge without significant central canal stenosis or neuroforaminal narrowing. L2-3: There is no focal disc herniation, central canal stenosis or neuroforaminal narrowing. L3-4: Annular disc bulge with mild facet arthropathy. No significant central canal stenosis or neuroforaminal narrowing. L4-5: Annular disc bulge with degenerative endplate changes and facet osteoarthropathy. There is no significant central canal stenosis. There is mild right neuroforaminal narrowing. L5-S1: There is no focal disc herniation, central canal stenosis or neuroforaminal narrowing. IMPRESSION: 1. No acute abnormality. 2. Mild degenerative disc disease. 3. Stable lesion in the L2 vertebral body, favor benign. Reviewed, Interpreted and Dictated by Christine Acuna MD Transcribed by Iveth Rojas Authenticated and [facility]
--- OUTSIDE RECORDS SUMMARY | 2025-05-28 09:08 | XMS_ITS | Clinical Summary ---
[facility] Address [address] [place] [address] Care Team Providers Care Senior It Security Analyst Name Role Phone Provider, No Known Primary [...] 07/01/2017 HEPATITIS C SCREENING 07/01/2017 MAMMOGRAM 2019 COLOGUARD 2024 COLON CANCER SCREENING 5 YEA R SIGMOIDOSCOPY 2024 COLONOSCOPY 2024 COLORECTAL CANCER SCREENING 2024 CT COLONOGRAPHY 2024 FECAL OCCULT BLOOD TEST 2024 FIT Testing (1 year) 2024 INFLUENZA VACCINE 04/05/2025 Pneumococcal Vaccine 0-49 Aged Out No longer eligible based on patient's age to complete this topic Insurance Care Teams Senior It Security Analyst Relationship Specialty Start Date End Date Provider, No Known [facility] [place] [address] PCP - General 07/01/17
--- OUTSIDE RECORDS SUMMARY | 2025-05-28 09:08 | XMS_ITS | Clinical Summary ---
Author Organization [email or web address] ([place], [place], [place], [place]) Address [address] [place] [address] Care Team Providers Care Patrol Lady Name Role Phone Dave Stephen MD Primary Care Provider [phone] Allergies Active Allergy Reactions Criticality Noted Date [...] Date Bert rded Speak language other than Irish at home Not on file 09/23/2023 Want [...] Tobacco Cessation Counseling and Screening (12+) 04/0704/07/2023 Lipid Panel 2024 COVID-19 VACCINE ( - season) 2025 Influenza Vaccine (#1) 2025 Insurance [employer] [facility] Care Teams Patrol Lady Relationship Specialty Start Date End Date Dave Stephen MD [address] [place] [address] PCP - General Family Medicine 04/07/23
--- OUTSIDE RECORDS SUMMARY | 2025-05-28 09:08 | XMS_ITS | Referral Summary ---
Author Organization [employer] ([place], [place], [place], [place]) Address [address] [place] [address] Care Team Providers Care Senior Architect Name Role Phone Dave Stephen MD Primary Care Provider [phone] Allergies Active Allergy Reactions Criticality Noted Date [...] Date Bert rded Speak language other than Montserrat[place] at home Not on file 09/23/2023 Want [...] Treatment Not on file Insurance Care Teams Senior Architect Relationship Specialty Start Date End Date Dave Stephen MD [address] [place] [address] PCP - General Family Medicine 04/07/23
== END 2025-05-28 23:59 | disposition home or self-care (01) ==
LOC: RAD 08:50
PROVIDERS: PCP Family Medicine; Visit Provider Family Medicine
DX: M51.369 Other intervertebral disc degeneration, lumbar region without mention of lumbar back pain or lower extremity pain (principal); M89.9 Disorder of bone, unspecified
CPT/HCPCS: 72148

== ENCOUNTER 2025-07-16 14:15 | Day surgery (SDC) | payer MEDICAID, SELFPAY ==
[2025-07-16 14:21] VITALS: BP 120/77; PULSE 66; RESP 16; O2SAT 96; BMI 28.3
[2025-07-16] MEDS: DEXAMETHASONE 10MG/ML 1ML VIAL 10 MG (14:29)
[2025-07-16 14:30] VITALS: BP 120/77; PULSE 66; RESP 18; O2SAT 96
[2025-07-16 14:33] VITALS: BP 120/77; PULSE 66; RESP 18; O2SAT 96
--- NOTE | 2025-07-16 14:36 | P.PCN_ITS ---
Procedure Date: 07/16/25 Time: 14:30 Anesthesiologist:: Daryn Escamilla CRNA Complications:: None Pre-procedure Diagnosis:: Degenerative disc lumbar spine multilevels. Lumbar radiculopathy. Post-procedure Diagnosis:: Same. Indications for Procedure:: Patient is a very pleasant 45-year-old female who comes our clinic today for lumbar epidural steroid injection. Patient describes low lumbar back pain as constant, dull, aching. She also reports bilateral hip and leg radicular sympt oms right greater than left. She rates her pain 7/10. Procedure Details:: Procedure: Lumbar epidural steroid injection under fluoroscopy Informed consent was obtained and the risks and benefits of the procedure were explained to the patient. The patient was taken to the procedure room and noninvasive monitors placed, including noninvasive blood pressure cuff and pulse oximeter. The back was viewed using C-arm Fluoroscopy and prepped using Chloraprep as a cleansing solution and the L5-S1 interspace was palpated. Skin and subcutaneous tissues were anesthetized using lidocaine 1.5% and a 25-gauge needle. After this, an 18-gauge Touhy epidural needle was placed into the L5-S1 interspace and advanced using fluoroscopic guidance and loss of resistance to air until the epidural space was encountered. After confirmation of needle placement in the epidural space, with dye, a solution containing normal saline, 3 mL and dexamethasone 10 mg were incrementally injected into the lumbar epidural space. The patient tolerated the procedure well with no complications. The patient was observed in the Pain Clinic and then discharged home neurologically intact. Plan and Disposition:: Patient was discharged without incident.
[2025-07-16 14:38] VITALS: BP 120/73; PULSE 65; RESP 16; O2SAT 95
== END 2025-07-16 14:38 | disposition home or self-care (01) ==
PROVIDERS: PCP Family Medicine; Visit Provider Anesthesiology
DX: M51.16 Intervertebral disc disorders with radiculopathy, lumbar region (principal); G62.9 Polyneuropathy, unspecified; Z88.0 Allergy status to penicillin; Z88.1 Allergy status to other antibiotic agents; Z91.041 Radiographic dye allergy status; Z79.1 Long term (current) use of non-steroidal anti-inflammatories (NSAID); Z79.899 Other long term (current) drug therapy
CPT/HCPCS: 62323; J1100

== ENCOUNTER 2025-08-05 14:28 | Outpatient (CLI) | payer MEDICAID, SELFPAY ==
--- NOTE | 2025-08-05 14:00 | MM_ITS ---
PROCEDURE INFORMATION: Exam: US Left Breast, Complete MG Left Diagnostic Breast Tomosynthesis Exam date and time: 08/05/2025 2:43 PM Age: 45 years old Clinical indication: Short-term follow-up left diagnostic mammogram and left breast ultrasound was recommended on 01/30/2025 to assess stability of left 11 o'clock suspected complicated cyst 2 cm from the nipple and subcentimeter lower outer cystic mass approximately 3 o'clock 3 cm from the nipple TECHNIQUE: Imaging protocol: Complete ultrasound of all four quadrants of the left breast and the retroareolar regions, including ultrasound of the axilla when performed. Left Diagnostic tomosynthesis and 2D mammography including computer-aided detection (CAD) when performed. Unilateral or bilateral exam. COMPARISON: 01/17/2025, 01/30/2025 FINDINGS: MAMMOGRAPHY: Breast composition: There are scattered areas of fibroglandular density. Breast mammogram findings: Upper inner ovoid 0.5 cm mass has remained stable. No associated architectural distortion or suspicious calcifications are present ULTRASOUND: Breast ultrasound findings: Targeted ultrasound of the region of interest left 1 o'clock 2 cm from the nipple demonstrates a hypoechoic 0.3 x 0.3 x 0.2 cm minimally complicated cystic structure Along the left 3 o'clock axis 3 cm from the nipple a 0.7 x 0.6 x 0.2 cm cystic structure is present, previously 0.4 x 0.3 x 0.5 cm Collection or suspected benign microcysts along the 11 o'clock axis 2 cm from the nipple measures 0.4 x 0.3 x 0.5 cm compared to 0.6 x 0.3 x 0.4 cm on 01/30/2025 IMPRESSION: Given the difference in measuring technique, 3 o'clock 3 cm from nipple left complicated cystic structure is similar to 01/30/2025. The 11 o'clock 2 cm from nipple complicated cystic structure is slightly diminished in size compared with 01/30/2025 Six-month follow-up targeted left 3 o'clock 3 cm from nipple and left 11 o'clock 2 cm from nipple suspected clusters of benign microcysts and should be rechecked in 6 months to assure size stability ASSESSMENT: BI-RADS category 3: Probably benign
--- OUTSIDE RECORDS SUMMARY | 2025-08-05 14:42 | XMS_ITS | Clinical Summary ---
[facility] Address [address] [place] [address] Care Team Providers Care Lumber Piler Operator Name Role Phone Provider, No Known [...] to complete this topic Insurance Care Teams Lumber Piler Operator Relationship Specialty Start Date End Date Provider, No Known [facility] [place] [address] PCP - General 07/01/17
--- OUTSIDE RECORDS SUMMARY | 2025-08-05 14:42 | XMS_ITS | Clinical Summary ---
Author Organization [employer] ([place], [place], [place], [place], [place]) Address [address] [place] [address] Care Team Providers Care Shipping Coordinator Name Role Phone Dave Stephen MD Primary Care Provider [phone] Allergies Active Allergy Reactions Criticality Noted Date [...] Date Bert rded Speak language other than Canadian at home Not on file 09/23/2023 Want [...] 2025 Influenza Vaccine (#1) [address] [facility] Care Teams Shipping Coordinator Relationship Specialty Start Date End Date Dave Stephen MD [address] [place] [id number] PCP - General Family Medicine 04/07/23
--- OUTSIDE RECORDS SUMMARY | 2025-08-05 14:42 | XMS_ITS | Referral Summary ---
Author Organization [facility] ([place], [place], [place], [place], [place]) Address [address] [place] [address] Care Team Providers Care Hospital Liaison Name Role Phone Dave Stephen MD Primary Care Provider [phone] Allergies Active Allergy Reactions Criticality Noted Date [...] Date Bert rded Speak language other than Danish at home Not on file 09/23/2023 Want [...] Plan of Treatment Not on file [place] [address] [address] Care Teams Hospital Liaison Relationship Specialty Start Date End Date Dave Stephen MD [address] [place], [place] [address], [place] [address] PCP - General Family Medicine 04/07/23
== END 2025-08-05 23:59 | disposition home or self-care (01) ==
LOC: RAD 14:29
PROVIDERS: PCP Family Medicine; Visit Provider Family Medicine
DX: N60.12 Diffuse cystic mastopathy of left breast (principal); R92.322 Mammographic fibroglandular density, left breast
CPT/HCPCS: 76641; 77061; 77065; G0279

== ENCOUNTER 2025-08-16 11:19 | Day surgery (SDC) | payer MEDICAID, SELFPAY ==
[2025-08-16 11:45] VITALS: BP 123/80; PULSE 70; RESP 18; O2SAT 94; BMI 28.3
[2025-08-16] MEDS: LIDOCAINE 1% 5ML PF VIAL 5 ML ×2 (12:23)
[2025-08-16] MEDS: BUPIVACAINE 0.25% 10ML INJ 25 MG IJ (12:23)
[2025-08-16 12:24] VITALS: BP 113/79; PULSE 66; RESP 18; O2SAT 96
[2025-08-16] MEDS: DEXAMETHASONE 10MG/ML 1ML VIAL 10 MG (12:24)
[2025-08-16 12:26] VITALS: BP 113/79; PULSE 66; RESP 18; O2SAT 96
[2025-08-16 12:31] VITALS: BP 132/86; PULSE 64; RESP 18; O2SAT 95
--- NOTE | 2025-08-16 13:33 | EXP.HP ---
History of Present Illness *Admission Date: 08/16/25 *Reason for visit:: Sacroiliitis *History of present illness: Patient presents for bilateral SI joint injections under fluoroscopy today. [facility] Disclaimer: The information contained in this section may have been updated after the patient was seen, as this information can be updated by other users. Medical History Vitamin D deficiency Urinary incontinence Substance abuse Tobacco abuse Right carpal tunnel syndrome PELAYO (nonalcoholic steatohepatitis) Lumbar radicular pain Hyperlipidemia History of Crohn's disease Drug induced constipation Degenerative disc disease, cervical Crohn's disease Chronic constipation Displaced fracture of left ulna styloid process, initial encounter for closed fracture Abnormal mammogram of left breast Abnormal mammogram Prediabetes Lesion of bone of lumbosacral spine Elevated blood uric acid level Breast cancer screening by mammogram Dysphagia Edema of both lower extremities SOB (shortness of breath) Abnormal electrocardiogram [ECG] [EKG] Neuropathy Surgical History History of hysterectomy Family History Grandmother Cancer breast Social History Smoking Status: Current every day smoker smoking status start date: 1 pack per day years smoked: 25 alcohol intake: never substance use type: denies use current occupational status: other Travel in the last 8 weeks?: None housing: house marital status: education level: college service: No caffeine: Yes Have you lived/traveled outside US in past 30 days?: No Contact w/someone who lives/traveled outside US past 30 days?: No Exposure to someone with infectious disease in past 14 days?: No Do you have a fever (greater than 100.4 F or 38 C)?: No Have you tested positive for COVID-19?: No Exposed to someone with COVID-19 in past 14 days?: No Do you have a sore throat?: No Do you have a cough?: No Do you have any weakness?: No Do you have any diarrhea?: No Are you experiencing any unusual bleeding?: No Do you have any muscle aches/pain?: No Do you have any abdominal pain?: No Are you experiencing loss of taste or smell?: No Other Medical History Have you received the Flu Vaccine for this season: No Have you received the Pneumonia Vaccine: No Review of Systems Review of Systems Review of systems:: pertinent systems reviewed and negative unless documented below Meds Home Medications and Allergies Home Medications ?Medication ?Instructions ?Recorded ?Confirmed ?Type buprenorphine 8 mg-naloxone 2 mg 3 film sublingual DAILY 01/19/24 08/16/25 History sublingual film (Suboxone) lidocaine 5 % topical patch See Rx Instructions .Route 06/13/24 08/16/25 Rx .COMPLEX #30 patches nicotine (polacrilex) 4 mg buccal 4 mg buccal Q8H PRN nicotine 10/01/24 08/16/25 Rx mini lozenge cravings #81 ea sennosides 8.6 mg tablet (Senna 8.6 mg PO DAILY PRN Constipation 02/06/25 08/16/25 History Lax) allopurinol 100 mg tablet 100 mg PO DAILY #30 tabs 04/15/25 08/16/25 Rx furosemide 20 mg tablet See Rx Instructions .Route 06/12/25 08/16/25 Rx .COMPLEX #90 tabs cholecalciferol (vitamin D3) 50 50 mcg PO DAILY #90 caps 08/06/25 08/16/25 Rx mcg (2,000 unit) capsule diclofenac sodium 1 % topical gel See Rx Instructions .Route 08/06/25 08/16/25 Rx .COMPLEX #100 grams gabapentin 800 mg tablet 800 mg PO TID 30 days #90 tabs 08/06/25 08/16/25 Rx New Prescriptions to Start Prescriptions: Allergies Allergy/AdvReac Type Severity Reaction Status Date / Time clindamycin Allergy Severe Anaphylaxis Verified 08/16/25 11:45 Penicillins Allergy Severe Anaphylaxis Verified 08/16/25 11:45 iodine Allergy Rash Verified 08/16/25 11:45 Exam Data for Last 24 hours Vital signs and Labs for Last 24 Hours: Pulse Resp BP Pulse Ox O2 Del Method 64 18 132/86 95 Room Air 08/16/25 12:31 08/16/25 12:31 08/16/25 12:31 08/16/25 12:31 08/16/25 12:31 I & O for Last 24 hours: Intake & Output 08/14/25 08/15/25 08/16/25 08/17/25 11:59 11:59 11:59 11:59 Weight 170 lb *Routine HEENT Exam Head: Present normocephalic Eye: Present EOMI ENT: Present mucous membranes moist *Routine Respiratory Exam Respiratory: Present CTA bilaterally *Routine Cardiovascular Exam Cardiovascular: Present RRR, Normal S1 and Normal S2 *Routine Abdominal Exam Abdominal: Present soft *Routine Rectal Exam Rectal:: deferred *Routine Genitalia Exam Genitalia:: deferred Assessment and Plan *Assessment and plan (1) Sacroiliac joint dysfunction: Status: Acute Category: Medical Code(s): M53.3 - Sacrococcygeal disorders, not elsewhere classified Plan Bilateral SI joint injection
--- NOTE | 2025-08-16 13:34 | EXP.PAIN.PRO ---
Procedure Date: 08/16/25 Time: 13:35 Anesthesiologist:: Lebron Hair MD Complications:: None Pre-procedure Diagnosis:: Sacroiliitis Post-procedure Diagnosis:: Same Indications for Procedure:: This patient is a pleasant 45-year-old white female who presents for bilateral SI joint pain. She is tender over both SI joints. She has a positive Chad's test bilaterally. She has positive Qing test bilaterally. She has positive SI joint compression test. She presents for bilateral SI joint injections under fluoroscopy today. Procedure Details:: B/L SI joint injection under fluoroscopy Informed consent was obtained and the risks and benefits of the procedure was explained to the patient. The patient was taken to the procedure room and placed prone on the procedure table. The patient was prepped using ChloraPrep. The skin and subcutaneous tissues overlying the SI joints were anesthetized using lidocaine. I placed a 22-gauge needle first in the left SI joint and second in the right SI joint. Needle placement was confirmed with dye. After this we injected 5 mL bupivacaine 0.25% and Depo-Medrol 40 mg into each SI joint. Patient tolerated the procedure well with no complication. Plan and Disposition:: Will follow-up with this patient in 2 weeks will assess efficacy of these injections.
== END 2025-08-16 12:31 | disposition home or self-care (01) ==
LOC: SC.PAINP 11:20
PROVIDERS: PCP Family Medicine; Visit Provider Anesthesiology
DX: M46.1 Sacroiliitis, not elsewhere classified (principal); K50.90 Crohn's disease, unspecified, without complications; M50.30 Other cervical disc degeneration, unspecified cervical region; E78.5 Hyperlipidemia, unspecified; K75.81 Nonalcoholic steatohepatitis (NASH); F17.210 Nicotine dependence, cigarettes, uncomplicated; Z88.0 Allergy status to penicillin; Z88.1 Allergy status to other antibiotic agents; Z79.899 Other long term (current) drug therapy
CPT/HCPCS: G0260; J0665; J1100; J2003